=== PATIENT | female | born 1965 | race Caucasian/White ===

== ENCOUNTER 2017-12-05 11:18 | Emergency (ER) | payer OTHER ==
[2017-12-05] MEDS ORDERED: MEPERIDINE HCL 50 MG/ML AMP ONE (12:04)
[2017-12-05] MEDS ORDERED: KETOROLAC 30 MG/ML INJ ONE (12:04)
[2017-12-05] MEDS ORDERED: ONDANSETRON 4 MG (ODT) TAB ONE (12:04)
[2017-12-05 12:32] LABS: Urine Blood TRACE (NEG); Urine Glucose NEGATIVE (NEG); Urine Protein NEGATIVE (NEG); Urine Specific Gravity >1.030 (1.005-1.030)
--- NOTE | 2017-12-05 13:06 | EDPHYS ---
Physician Documentation [facility] Name: Ursula Wu Age: 52 yrs Sex: Female : 1965 Arrival Date: 12/05/2017 Time: 11:21 Bed 7 Private MD: Don Xiong B ED Physician Elian Meek HPI: 12/05 12:04 This 52 yrs old Female presents to ER via Ambulatory with complaints of Back jr8 Pain. 12:04 The patient presents with pain that is acute, and decreased range of motion. The jr8 symptoms are located in the low back. Onset: The symptoms/episode began/occurred acutely, today. The pain radiates. Associated signs and symptoms: The patient has no apparent associated signs or symptoms. The problem was sustained Patient has been having cold symptoms with cough. Stated that she strained her back with cough. Has history of low back pain but much worse today. Denies bowel or bladder dysfunction. Able to ambulate but with pain. 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 - Social history:: Smoking status: Patient/guardian denies using tobacco. ROS: 12:04 Eyes: Negative for injury, pain, redness, and discharge, ENT: Negative for injury, jr8 pain, and discharge, Neck: Negative for injury, pain, and swelling, Cardiovascular: Negative for chest pain, palpitations, and edema, Respiratory: Negative for shortness of breath, cough, wheezing, and pleuritic chest pain, Abdomen/GI: Negative for abdominal pain, nausea, vomiting, diarrhea, and constipation, MS/Extremity: Negative for injury and deformity, Skin: Negative for injury, rash, and discoloration, Neuro: Negative for headache, weakness, numbness, tingling, and seizure. 12:04 Back: Positive for pain at rest, pain with movement, radiated pain, of the low back area. Exam: 12:04 Eyes: Pupils equal round and reactive to light, extra-ocular motions intact. Lids and jr8 lashes normal. Conjunctiva and sclera are non-icteric and not injected. Cornea within normal limits. Periorbital areas with no swelling, redness, or edema. ENT: Nares patent. No nasal discharge, no septal abnormalities noted. Tympanic membranes are normal and external auditory canals are clear. Oropharynx with no redness, swelling, or masses, exudates, or evidence of obstruction, uvula midline. Mucous membranes moist. Neck: Trachea midline, no thyromegaly or masses palpated, and no cervical lymphadenopathy. Supple, full range of motion without nuchal rigidity, or vertebral point tenderness. No Meningismus. Cardiovascular: Regular rate and rhythm with a normal S1 and S2. No gallops, murmurs, or rubs. Normal PMI, no JVD. No pulse deficits. Respiratory: Lungs have equal breath sounds bilaterally, clear to auscultation and percussion. No rales, rhonchi or wheezes noted. No increased work of breathing, no retractions or nasal flaring. Abdomen/GI: Soft, non-tender, with normal bowel sounds. No distension or tympany. No guarding or rebound. No evidence of tenderness throughout. Skin: Warm, dry with normal turgor. Normal color with no rashes, no lesions, and no evidence of cellulitis. MS/ Extremity: Pulses equal, no cyanosis. Neurovascular intact. Full, normal range of motion. Neuro: Awake and alert, GCS 15, oriented to person, place, time, and situation. Cranial nerves II-XII grossly intact. Motor strength 5/5 in all extremities. Sensory grossly intact. Cerebellar exam normal. Normal gait. 12:04 Back: pain, that is moderate, of the low back area, ROM is painful, normal spinal alignment noted, CVA tenderness, is absent, vertebral tenderness, is not appreciated, muscle spasm, is appreciated in the left low back and right low back. Vital Signs: 11:31 BP 146 / 83; Pulse 80; Resp 18; Temp 97.9; Pulse Ox 100% on R/A; Weight 105.23 kg; hb Height 5 ft. 6 in. (167.64 cm); Pain 10/10; 13:12 BP 118 / 66; Pulse 79; Resp 18; Pulse Ox 100% on R/A; hj 11:31 Body Mass Index 37.45 (105.23 kg, 167.64 cm) hb MDM: 11:37 Patient medically screened. jr8 12:48 Data reviewed: vital signs, nurses notes, and as a result, I will discharge patient. jr8 Data interpreted: Pulse oximetry: on room air is 100 %. Interpretation: normal. Counseling: I had a detailed discussion with the patient and/or guardian regarding: the historical points, exam findings, and any diagnostic results supporting the discharge/admit diagnosis, the need for outpatient follow up, a family practitioner, to return to the emergency department if symptoms worsen or persist or if there are any questions or concerns that arise at home. Response to treatment: the patient's symptoms have markedly improved after treatment. 12:48 Differential diagnosis: Pyelonephritis ruptured disc, spinal injury, sprain, jr8 Ureterolithiasis. Counseling: I had a detailed discussion with the patient and/or guardian regarding: the presence of at least one elevated blood pressure reading (>120/80) during this emergency department visit. Special discussion: I have referred the patient to see his PCP for further evaluation of high blood pressure. 12/05 12:05 Order name: Urine Dipstick--Ancillary (enter results); Complete Time: 12:34 eb Administered Medications: 12:02 Drug: TORadol 60 mg Route: IM; Site: left deltoid; la1 13:14 Follow up: Response: No adverse reaction; Pain is decreased hj 12:02 Drug: Demerol 50 mg Route: IM; Site: right deltoid; la1 13:13 Follow up: Response: No adverse reaction; Pain is decreased hj 12:02 Drug: Zofran 8 mg Route: PO; la1 13:13 Follow up: Response: No adverse reaction; Nausea is decreased hj Disposition: 18:57 Co-signature as Attending Physician, Elian Meek MD. Disposition: 12/05/17 13:05 Discharged to Home. Impression: Low back pain, Radiculopathy, lumbar region. - Condition is Stable. - Discharge Instructions: Back Pain, Adult, Musculoskeletal Pain, Back Exercises, [id number], Heat Therapy. - Prescriptions for Ibuprofen 800 mg Oral Tablet - take 1 tablet by ORAL route every 12 hours As needed take with food; 20 tablet. Cyclobenzaprine 10 mg Oral Tablet - take 1 tablet by ORAL route every 8 hours As needed; 30 tablet. Tramadol 50 mg Oral Tablet - take 1 tablet by ORAL route every 8 hours as needed; 20 tablet. - Medication Reconciliation Form, Thank You Letter, Antibiotic Education, Prescription Opioid Use form. - Follow up: Don Xiong MD; When: 2 - 3 days; Reason: Recheck today's complaints, Continuance of care, Re-evaluation by your physician. - Problem is new. - Symptoms have improved. Signatures: Dispatcher [employer] EDMS Carrington Benjamin PA PA jr8 Prieto Peres RN RN la1 Cristian Noe RN RN hj Susan Rao RN RN Elian Meek MD MD
--- NOTE | 2017-12-05 13:06 | ER ---
Nurse's Notes [facility] Name: Ursula Wu Age: 52 yrs Sex: Female : 1965 Arrival Date: 12/05/2017 Time: 11:21 Bed 7 Private MD: Don Xiong B Diagnosis: Low back pain;Radiculopathy, lumbar region Presentation: 12/05 11:28 Presenting complaint: Patient states: Low back pain that radiates to abdomen and right hb foot x 2 days. Transition of care: patient was not received from another setting of care. Onset of symptoms was December 04, 2017. Initial Sepsis Screen: Does the patient meet any 2 criteria? No. Patient's initial sepsis screen is negative. Does the patient have a suspected source of infection? No. Patient's initial sepsis screen is negative. Care prior to arrival: Medication(s) given: Advil 600 mg and prednisone 10 mg at 0930 today. 11:28 Method Of Arrival: Ambulatory hb 11:28 Acuity: GUS 4 hb Triage Assessment: 11:34 General: Appears in no apparent distress. uncomfortable, Behavior is cooperative, hj appropriate for age, crying. Pain: Complains of pain in back. Musculoskeletal: Circulation, motion, and sensation intact. Capillary refill. 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 - Social history:: Smoking status: Patient/guardian denies using tobacco. Screenin:34 Abuse screen: Denies threats or abuse. Denies injuries from another. Nutritional hj screening: No deficits noted. Tuberculosis screening: No symptoms or risk factors identified. Fall Risk None identified. Assessment: 11:38 General: Appears in no apparent distress. uncomfortable, obese, Behavior is calm, hj cooperative, appropriate for age. Pain: Complains of pain in lumbar area Pain radiates to pelvis Pain currently is 7 out of 10 on a pain scale. Quality of pain is described as aching, Pain began 1 day ago. Is continuous, Also complains of tiingling of R foot;. Neuro: Level of Consciousness is awake, alert, obeys commands, Oriented to person, place, time, situation, Appropriate for age. Cardiovascular: Capillary refill < 3 seconds Patient's skin is warm and dry. Respiratory: Airway is patent Respiratory effort is even, unlabored, Respiratory pattern is regular, symmetrical. GI: No signs and/or symptoms were reported involving the gastrointestinal system. : No signs and/or symptoms were reported regarding the genitourinary system. EENT: No signs and/or symptoms were reported regarding the EENT system. Derm: No signs and/or symptoms reported regarding the dermatologic system. Musculoskeletal: Reports pulled muscle 2 years ago, same symptoms today, denies hx of kidney stone;. Vital Signs: 11:31 BP 146 / 83; Pulse 80; Resp 18; Temp 97.9; Pulse Ox 100% on R/A; Weight 105.23 kg; hb Height 5 ft. 6 in. (167.64 cm); Pain 10/10; 13:12 BP 118 / 66; Pulse 79; Resp 18; Pulse Ox 100% on R/A; hj 11:31 Body Mass Index 37.45 (105.23 kg, 167.64 cm) hb ED Course: 11:21 Patient arrived in ED. mr 11:22 Don Xiong MD is Private Physician. mr 11:30 Triage completed. hb 11:31 Arm band placed on right wrist. hb 11:34 Patient has correct armband on for positive identification. Placed in gown. Bed in low hj position. Call light in reach. Side rails up X 1. Adult w/ patient. 11:37 Carrington Benjamin PA is PHCP. jr8 11:37 Elian Meek MD is Attending Physician. jr8 11:37 Cristian Noe, VALORIE is Primary Nurse. hj 13:05 Don Xiong MD is Referral Physician. jr8 13:12 No provider procedures requiring assistance completed. Patient did not have IV access hj during this emergency room visit. Administered Medications: 12:02 Drug: TORadol 60 mg Route: IM; Site: left deltoid; la1 13:14 Follow up: Response: No adverse reaction; Pain is decreased hj 12:02 Drug: Demerol 50 mg Route: IM; Site: right deltoid; la1 13:13 Follow up: Response: No adverse reaction; Pain is decreased hj 12:02 Drug: Zofran 8 mg Route: PO; la1 13:13 Follow up: Response: No adverse reaction; Nausea is decreased Outcome: 13:05 Discharge ordered by MD. deleon 13:12 Discharged to home ambulatory, with family. 13:12 Condition: stable 13:12 Discharge instructions given to patient, family, Instructed on discharge instructions, follow up and referral plans. medication usage, Demonstrated understanding of instructions, follow-up care, medications, Prescriptions given X 3. 13:13 Patient left the ED. Signatures: Aida Lyles mr Carrington Benjamin PA PA jr8 Prieto Peres RN RN laCristian Frias RN RN Susan Rao RN RN
[2017-12-05 13:17] VITALS: O2SAT 100
[2017-12-05 13:18] VITALS: BP 118/66
[2017-12-05 13:24] VITALS: TEMP 97.8
== END 2017-12-05 13:13 | disposition home or self-care (01) ==
LOC: ER 11:18
DX: M54.16 Radiculopathy, lumbar region (principal); K21.9 Gastro-esophageal reflux disease without esophagitis
CPT/HCPCS: 81003; 96372; 99283; J2175

== ENCOUNTER 2018-06-28 19:57 | Emergency (ER) | payer OTHER ==
--- OUTSIDE RECORDS SUMMARY | 2018-06-28 20:00 | XMS REPORT ---
:1965 Author Organization [employer] Care Team Providers Name Role Phone Trevor Campa Provider Role Unavailable Allergies, Adverse Reactions, Alerts Substance Reaction Event Type N.K.D.A. Info Not Available Non Drug Allergy Problems Problem Type Condition Code Onset Dates Condition Status Assessment Pain in joint of left elbow M25.522 Active Assessment Left lateral epicondylitis M77.12 Active Medications Medication Code System Code Instructions Start End Date Status Dosage Date Tums ND 22359943495 500 MG Orally Apr 14, Active 1 tablet Once a day 2017 Advil NDC 52404807200 200 MG Orally Apr 14, Active 1 tablet Three times a day 2017 with food or milk as needed Results No Known Results Summary Purpose [employer] Submission
[2018-06-28] MEDS ORDERED: LORAZEPAM 1 MG TABLET ONE ×2 (21:05→22:18)
[2018-06-28 21:18] LABS: Absolute Lymphocytes (CBC) 2.2 K/uL (0.7-4.9); Absolute Monocytes 0.5 K/uL (0.1-1.3); Absolute Neutrophil 3.5 K/uL (1.8-8.0); Basophils % 0.6 % (0-1.3); Eosinophils % 4.6 % (0-4.4); Hematocrit 44.3 % (36.0-45.0); MCH 28.3 pg (27.0-35.0); MCV 85.9 fL (80-100); MPV 9.1 fL (7.6-11.3); Monocytes % 7.3 % (3.3-12.3); RBC Red Blood Cell Count 5.16 M/uL (3.86-4.86)
[2018-06-28 21:34] LABS: Protime INR 0.94
--- NOTE | 2018-06-28 21:38 | RAD REPORT ---
EXAM DESCRIPTION: CT - Head Brain Wo Cont - 06/28/2018 9:30 pm CLINICAL HISTORY: Alteration of awareness/confusion COMPARISON: December 2016 TECHNIQUE: Computed axial tomography of the head was obtained. IV contrast was not requested. All CT scans are performed using dose optimization technique as appropriate and may include automated exposure control or mA/KV adjustment according to patient size. FINDINGS: An intracranial bleed is not seen . The ventricles are normal in caliber. No extra-axial fluid collection is noted. Fluid within the sinuses/ mastoids is not seen. IMPRESSION: No acute intracranial abnormality is seen. If patient's symptoms persist MRI of the bra in would be recommended.
[2018-06-28 21:39] LABS: ALT/SGPT 27 U/L (12-78); AST/SGOT 19 U/L (15-37); Alkaline Phosphatase 79 U/L (45-117); BUN Blood Urea Nitrogen 25 mg/dL (7-18); Bicarbonate 27 mmol/L (21-32); Bilirubin Direct < 0.1 mg/dL (0-0.2); Bilirubin Total 0.3 mg/dL (0.2-1.0); Glucose Level 104 mg/dL (74-106); Potassium 3.9 mmol/L (3.5-5.1); Protein, Total 7.7 g/dL (6.4-8.2); Sodium Level 142 mmol/L (136-145)
[2018-06-28 21:48] LABS: Barbiturates NEGATIVE (NEGATIVE); Benzodiazepines NEGATIVE (NEGATIVE); Cocaine NEGATIVE (NEGATIVE); METHAMPHETAM NEGATIVE (NEGATIVE); Methadone NEGATIVE (NEGATIVE); Opiates NEGATIVE (NEGATIVE); Phencyclidine NEGATIVE (NEGATIVE); THC Cannibis NEGATIVE (NEGATIVE)
--- NOTE | 2018-06-28 21:48 | EDPHYS ---
Physician Documentation [facility] Name: Ursula Wu Age: 53 yrs Sex: Female : 1965 Arrival Date: 06/28/2018 Time: 19:59 Bed 18 Private MD: Don Xiong B ED Physician Little Ji HPI: 06/28 20:40 This 53 yrs old Female presents to ER via Ambulatory with complaints of ma2 Doesn't Feel Right. 20:40 The patient presents to the emergency department with anxiety. Onset: The ma2 symptoms/episode began/occurred gradually, 1 week(s) ago. Past psychiatric history: Prior diagnosis: anxiety . Associated signs and symptoms: Pertinent positives; anxiety, Pertinent negatives: abdominal pain, delusions, depression, hallucinations, headache, homicidal ideation, nausea, palpitations, shortness of breath, suicide ideation. Severity of symptoms: At their worst the symptoms were moderate in the emergency department the symptoms are unchanged. The patient has experienced a previous episode. 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 - Social history:: Smoking status: Patient/guardian denies using tobacco, Patient/guardian denies using alcohol, street drugs, The patient lives. - Ebola Screening: : No symptoms or risks identified at this time. - Family history:: not pertinent, pertinent for. - Hospitalizations: : No recent hospitalization is reported. ROS: 20:40 Constitutional: Negative for fever, chills, and weight loss. ma2 20:40 ENT: Negative for injury, pain, and discharge, Respiratory: Negative for shortness of breath, cough, wheezing, and pleuritic chest pain. 20:40 Psych: Positive for anxiety, Negative for depression, alcohol dependence, homicidal ideation, suicide gesture. 20:40 All other systems are negative. Exam: 20:40 Constitutional: This is a well developed, well nourished patient who is awake, alert, ma2 and in no acute distress. Head/Face: Normocephalic, atraumatic. Chest/axilla: Normal chest wall appearance and motion. Nontender with no deformity. No lesions are appreciated. Cardiovascular: Regular rate and rhythm with a normal S1 and S2. No gallops, murmurs, or rubs. Normal PMI, no JVD. No pulse deficits. Respiratory: Lungs have equal breath sounds bilaterally, clear to auscultation and percussion. No rales, rhonchi or wheezes noted. No increased work of breathing, no retractions or nasal flaring. Abdomen/GI: Soft, non-tender, with normal bowel sounds. No distension or tympany. No guarding or rebound. No evidence of tenderness throughout. 20:40 Neuro: Awake and alert, GCS 15, oriented to person, place, time, and situation. Cranial nerves II-XII grossly intact. Motor strength 5/5 in all extremities. Sensory grossly intact. Cerebellar exam normal. Normal gait. 20:40 Psych: exam not indicated, Behavior/mood is anxious, Affect is Oriented to person, place, time, Patient has no thoughts/intents to harm self or others. Memory is normal. Delusions/hallucinations are not present. Vital Signs: 20:04 BP 148 / 92; Pulse 72; Resp 18; Temp 97.8; Pulse Ox 99% on R/A; Weight 108.86 kg; ak1 Height 5 ft. 6 in. (167.64 cm); Pain 0/10; 21:30 BP 131 / 51; Pulse 52; Resp 12; Pulse Ox 100% on R/A; lp1 22:15 BP 112 / 60; Pulse 52; Resp 14; Pulse Ox 100% ; Pain 0/10; lp1 20:04 Body Mass Index 38.74 (108.86 kg, 167.64 cm) ak1 MDM: 20:26 Patient medically screened. ma2 20:40 Differential diagnosis: drug withdrawal. acute psychotic break, depression, depression ma2 vs anxiety. Data reviewed: vital signs, nurses notes, EMS record. Counseling: I had a detailed discussion with the patient and/or guardian regarding: the historical points, exam findings, and any diagnostic results supporting the discharge/admit diagnosis, the presence of at least one elevated blood pressure reading (>120/80) during this emergency department visit, lab results, the need for outpatient follow up. Response to treatment: the patient's symptoms have markedly improved after treatment. 06/28 20:40 Order name: Acetaminophen; Complete Time: 21:46 ma2 06/28 20:40 Order name: Basic Metabolic Panel; Complete Time: 21:46 ma2 06/28 20:40 Order name: CBC with Diff; Complete Time: 21:33 ma2 06/28 20:40 Order name: ETOH Level; Complete Time: 21:46 ma2 06/28 20:40 Order name: Hepatic Function; Complete Time: 21:46 ma2 06/28 20:40 Order name: PT-INR; Complete Time: 21:46 ma2 06/28 20:40 Order name: Ptt, Activated; Complete Time: 21:46 ma2 06/28 20:40 Order name: Salicylate [facility] 06/28 20:40 Order name: Urine Drug Screen [facility] 06/28 20:40 Order name: EKG; Complete Time: 20:41 ma2 06/28 21:12 Order name: CT Head Brain wo Cont; Complete Time: 21:46 ma2 06/28 21:35 Order name: Urine Dipstick--Ancillary (enter results) ma5 06/28 20:40 Order name: EKG - Nurse/Tech; Complete Time: 21:57 ma2 06/28 20:40 Order name: IV Saline Lock; Complete Time: 21:57 ma2 06/28 20:40 Order name: Labs collected and sent; Complete Time: 21:57 ma2 06/28 20:40 Order name: Urine Dipstick-Ancillary (obtain specimen); Complete Time: 21:58 ma2 Administered Medications: 21:00 Drug: Ativan 2 mg Route: PO; lp1 21:57 Follow up: Response: Marked relief of symptoms; Anxiety decreased lp1 Disposition: 06/28/18 21:47 Discharged to Home. Impression: Anxiety disorder, unspecified. - Condition is Stable. - Discharge Instructions: Generalized Anxiety Disorder. - Prescriptions for buspirone 5 mg Oral tablet - take 1 tablet by ORAL route 3 times per day; 60 tablet. Ativan 1 mg Oral Tablet - take 1 tablet by ORAL route every 8 hours As needed; 10 tablet. - Medication Reconciliation Form, Thank You Letter, Antibiotic Education, Prescription Opioid Use form. - Follow up: Private Physician; When: Tomorrow; Reason: Continuance of care. Signatures: Dispatcher [employer] Leann Dailey RN RN lp1 Rosario Stark RN RN ak1 Little Ji MD MD ma2 Corrections: (The following items were deleted from the chart) 22:29 21:47 06/28/2018 21:47 Discharged to Home. Impression: Anxiety disorder, unspecified. lp1 Condition is Stable. Discharge Instructions: Generalized Anxiety Disorder. Prescriptions for buspirone 5 mg Oral tablet - take 1 tablet by ORAL route 3 times per day; 60 tablet, Ativan 1 mg Oral Tablet - take 1 tablet by ORAL route every 8 hours As needed; 10 tablet. and Forms are Medication Reconciliation Form, Thank You Letter, Antibiotic Education, Prescription Opioid Use. Follow up: Private Physician; When: Tomorrow; Reason: Continuance of care. ma2
--- NOTE | 2018-06-28 21:48 | ER ---
Nurse's Notes [facility] Name: Ursula Wu Age: 53 yrs Sex: Female : 1965 Arrival Date: 06/28/2018 Time: 19:59 Bed 18 Private MD: Don Xiong B Diagnosis: Anxiety disorder, unspecified Presentation: 06/28 20:08 Presenting complaint: Patient states: started taking antidepressants 2weeks ago for 2 ak1 days and stopped. pt had a fight with her daughter today. pt stated "I feel like I am loosing my mind and I have to much stress". Transition of care: patient was not received from another setting of care. Onset of symptoms was June 28, 2018. Risk Assessment: Do you want to hurt yourself or someone else? Patient reports no desire to harm self or others. Initial Sepsis Screen: Does the patient meet any 2 criteria? No. Patient's initial sepsis screen is negative. Does the patient have a suspected source of infection? No. Patient's initial sepsis screen is negative. Care prior to arrival: None. 20:08 Method Of Arrival: Ambulatory ak1 20:08 Acuity: GUS 2 ak1 Triage Assessment: 20:10 General: Appears in no apparent distress. Behavior is cooperative, anxious. Pain: ak1 Denies pain. EENT: No signs and/or symptoms were reported regarding the EENT system. Neuro: Level of Consciousness is awake, alert, obeys commands, Oriented to person, place, time, Airplane Navigator are equal bilaterally Moves all extremities. Gait is steady, Speech is normal, Facial symmetry appears normal, Pupils are PERRLA. Cardiovascular: No deficits noted. Respiratory: No deficits noted. GI: No signs and/or symptoms were reported involving the gastrointestinal system. : No signs and/or symptoms were reported regarding the genitourinary system. Derm: No signs and/or symptoms reported regarding the dermatologic system. Musculoskeletal: No signs and/or symptoms reported regarding the musculoskeletal system. 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 - Social history:: Smoking status: Patient/guardian denies using tobacco, Patient/guardian denies using alcohol, street drugs, The patient lives. - Ebola Screening: : No symptoms or risks identified at this time. - Family history:: not pertinent, pertinent for. - Hospitalizations: : No recent hospitalization is reported. Screenin:11 Abuse screen: Denies threats or abuse. Denies injuries from another. Abuse screen: ak1 Denies threats or abuse. Nutritional screening: No deficits noted. Tuberculosis screening: No symptoms or risk factors identified. Fall Risk None identified. Assessment: 20:45 General: Appears uncomfortable, well groomed, Behavior is anxious, restless. Pain: lp1 Denies pain. Neuro: Level of Consciousness is awake, alert, obeys commands, Oriented to person, place, time, situation, Appropriate for age States "I keep having moments of piper vu". Airplane Navigator are equal bilaterally Moves all extremities. Full function Gait is steady, Speech is normal, Facial symmetry appears normal, Pupils are PERRLA, Intact. Cardiovascular: Patient's skin is warm and dry. Respiratory: Respiratory effort is even, unlabored. GI: No signs and/or symptoms were reported involving the gastrointestinal system. : No signs and/or symptoms were reported regarding the genitourinary system. EENT: No signs and/or symptoms were reported regarding the EENT system. Derm: Skin is pink, warm \\T\\ dry. Musculoskeletal: Circulation, motion, and sensation intact. 22:04 Reassessment: Patient appears in no apparent distress at this time. Patient and/or lp1 family updated on plan of care and expected duration. Pain level reassessed. Patient is alert, oriented x 3, equal unlabored respirations, skin warm/dry/pink. appears calm at this time Patient states feeling better. Patient states symptoms have improved. 22:25 Reassessment: Patient appears in no apparent distress at this time. Patient is alert, lp1 oriented x 3, equal unlabored respirations, skin warm/dry/pink. family at bedside; Patient states "the racing thoughts have stopped and I'm not having the piper vu anymore" Patient states feeling better. Vital Signs: 20:04 BP 148 / 92; Pulse 72; Resp 18; Temp 97.8; Pulse Ox 99% on R/A; Weight 108.86 kg; ak1 Height 5 ft. 6 in. (167.64 cm); Pain 0/10; 21:30 BP 131 / 51; Pulse 52; Resp 12; Pulse Ox 100% on R/A; lp1 22:15 BP 112 / 60; Pulse 52; Resp 14; Pulse Ox 100% ; Pain 0/10; lp1 20:04 Body Mass Index 38.74 (108.86 kg, 167.64 cm) ak1 ED Course: 19:59 Patient arrived in ED. ds1 19:59 Don Xiong MD is Private Physician. ds1 20:09 Triage completed. ak1 20:10 Arm band placed on Patient placed in an exam room, Patient notified of wait time. ak1 20:11 Patient has correct armband on for positive identification. ak1 20:13 Leann Son, RN is Primary Nurse. lp1 20:25 Little Ji MD is Attending Physician. ma2 21:05 Inserted saline lock: 20 gauge in right antecubital area, using aseptic technique. lp1 Blood collected. 21:30 CT Head Brain wo Cont In Process Unspecified. EDMS 21:30 CT completed. Patient tolerated procedure well. Patient moved to CT via wheelchair. Patient moved back from CT. 22:04 No provider procedures requiring assistance completed. lp1 22:25 IV discontinued, No redness/swelling at site. Pressure dressing applied. lp1 Administered Medications: 21:00 Drug: Ativan 2 mg Route: PO; lp1 21:57 Follow up: Response: Marked relief of symptoms; Anxiety decreased lp1 Outcome: 21:47 Discharge ordered by . ma2 22:28 Discharged to home ambulatory, with family. lp1 22:28 Condition: good 22:28 Discharge instructions given to patient, family, Instructed on discharge instructions, follow up and referral plans. medication usage, Demonstrated understanding of instructions, follow-up care, medications, Prescriptions given X 2. 22:29 Patient left the ED. lp1 Signatures: Dispatcher [employer] EDMS Aiden Jasper GordilloMarilynn angulo ds1 Leann Son RN RN lp1 Rosario Stark RN RN ak1 Little Ji MD MD ma2 Corrections: (The following items were deleted from the chart) 22:28 22:25 Reassessment: Patient appears in no apparent distress at this time. Patient is lp1 alert, oriented x 3, equal unlabored respirations, skin warm/dry/pink. family at bedside Patient states feeling better. lp1
[2018-06-28 22:41] LABS: Urine Blood NEGATIVE (NEG); Urine Glucose NEGATIVE (NEG); Urine Protein NEGATIVE (NEG); Urine Specific Gravity 1.025 (1.005-1.030); Urine pH 5.5 (5.0-7.0)
[2018-06-28 23:41] VITALS: TEMP 97.8
[2018-06-28 23:42] VITALS: O2SAT 100
[2018-06-28 23:43] VITALS: BP 112/60
--- NOTE | 2018-06-29 05:49 | EKG ---
Test Date: 2018-06-28 Test Time: 21:19:19 Special Trackwork Blacksmith: NATASHA MEASUREMENT RESULTS: Intervals: Rate: 60 KS: 160 QRSD: 80 QT: 412 QTc: 412 [place]: P: 45 KS: 160 QRS: 28 T: 22 INTERPRETIVE STATEMENTS: Normal sinus rhythm Normal ECG Compared to ECG 05/22/2013 08:51:03 Sinus bradycardia no longer present Electronically Signed On 06-29-18 05:48:55 VENDING MACHINE COIN COLLECTOR by Russell Verdugo
== END 2018-06-28 22:29 | disposition home or self-care (01) ==
LOC: ER 19:57
DX: F41.9 Anxiety disorder, unspecified (principal); K21.9 Gastro-esophageal reflux disease without esophagitis; Z88.6 Allergy status to analgesic agent
CPT/HCPCS: 36415; 70450; 80048; 80076; 80307; 80320; 80329; 81003; 85025; 85610; 85730; 93005; 99284

== ENCOUNTER 2018-07-11 11:31 | Observation (INO) | payer OTHER ==
--- OUTSIDE RECORDS SUMMARY | 2018-07-11 11:33 | XMS REPORT ---
[...] End Date Status Dosage Date Tums ND [id number] 500 MG Orally Apr 14, Active 1 tablet Once a day 2017 Advil NDC [id number] 200 MG Orally Apr 14, Active 1 tablet Three times a day 2017 with food or milk as needed Results No Known Results Summary Purpose eClinicalWorks Submission
--- NOTE | 2018-07-11 12:48 | RAD REPORT ---
EXAM DESCRIPTION: RAD - Chest Single View - 07/11/2018 12:41 pm CLINICAL HISTORY: CHEST PAIN Chest pain. COMPARISON: CHEST SINGLE VIEW dated 05/22/2013; CHEST SINGLE VIEW dated 02/23/2012 FINDINGS: Portable technique limits examination quality. The lungs are grossly clear. The heart is normal in size. No displaced fractures. IMPRESSION: No acute intrathoracic process suspected.
[2018-07-11 13:02] LABS: Absolute Lymphocytes (CBC) 2.2 K/uL (0.7-4.9); Absolute Monocytes 0.4 K/uL (0.1-1.3); Absolute Neutrophil 3.7 K/uL (1.8-8.0); Basophils % 1.4 % (0-1.3); Lymphocytes % 33.1 % (15.3-44.8); MCH 28.3 pg (27.0-35.0); MCV 84.5 fL (80-100); MPV 9.2 fL (7.6-11.3); Monocytes % 6.2 % (3.3-12.3); RBC Red Blood Cell Count 5.21 M/uL (3.86-4.86)
[2018-07-11] MEDS ORDERED: ASPIRIN 81 MG CHEWABLE TABLET ONE (13:02)
[2018-07-11] MEDS ORDERED: NITROGLYCERIN 0.4 MG/TAB SL ONE (13:03)
[2018-07-11 13:19] LABS: ALT/SGPT 24 U/L (12-78); AST/SGOT 13 U/L (15-37); Alkaline Phosphatase 70 U/L (45-117); BUN Blood Urea Nitrogen 16 mg/dL (7-18); Bicarbonate 29 mmol/L (21-32); Bilirubin Direct 0.1 mg/dL (0-0.2); Bilirubin Total 0.7 mg/dL (0.2-1.0); Glucose Level 92 mg/dL (74-106); Magnesium 2.1 mg/dL (1.8-2.4); NT PRO-BNP 57 pg/mL (<125); Potassium 3.6 mmol/L (3.5-5.1); Protein, Total 7.7 g/dL (6.4-8.2); Sodium Level 141 mmol/L (136-145); Troponin (Emerg Dept Use Only) < 0.02 ng/mL (0.0-0.045)
--- NOTE | 2018-07-11 13:30 | ER ---
Nurse's Notes [facility] Name: Ursula Wu Age: 53 yrs Sex: Female : 1965 Arrival Date: 07/11/2018 Time: 11:38 Bed 13 Private MD: Don Xiong B Diagnosis: Chest pain, unspecified Presentation: 07/11 11:44 Presenting complaint: Patient states: continuous CP chest pain that began this morning. 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 Transition of care: patient was not received from another setting of care. Onset of symptoms was July 11, 2018. Risk Assessment: Do you want to hurt yourself or someone else? Patient reports no desire to harm self or others. Initial Sepsis Screen: Does the patient meet any 2 criteria? No. Patient's initial sepsis screen is negative. Does the patient have a suspected source of infection? No. Patient's initial sepsis screen is negative. Care prior to arrival: None. 11:44 Method Of Arrival: Ambulatory 11:44 Acuity: GUS 3 ss TECHNOLOGY APPLICATIONS CONSULTANT: 13:03 LMP N/A - Irregular menses bp Historical: - Allergies: 11:45 Pain Medication Makes very sick N/V; ss - PMHx: 11:45 GERD; ss - PSHx: 11:45 Partial Hysterectomy; ss - Immunization history:: Adult Immunizations up to date. - Social history:: Smoking status: Patient/guardian denies using tobacco. - Ebola Screening: : Patient denies exposure to infectious person Patient denies travel to an Ebola-affected area in the 21 days before illness onset. Screenin:48 Abuse screen: Denies threats or abuse. Denies injuries from another. Nutritional bp screening: No deficits noted. Tuberculosis screening: No symptoms or risk factors identified. Fall Risk None identified. Assessment: 12:00 General: Appears in no apparent distress. comfortable, Behavior is cooperative, bp appropriate for age, anxious. Pain: Complains of pain in chest Pain does not radiate. Pain began. Neuro: Level of Consciousness is awake, alert, obeys commands. Cardiovascular: Rhythm is sinus bradycardia. Respiratory: Airway is patent Respiratory effort is even, unlabored, Respiratory pattern is regular, symmetrical. GI: No signs and/or symptoms were reported involving the gastrointestinal system. : No signs and/or symptoms were reported regarding the genitourinary system. EENT: No signs and/or symptoms were reported regarding the EENT system. Derm: No signs and/or symptoms reported regarding the dermatologic system. Musculoskeletal: Circulation, motion, and sensation intact. Range of motion: intact in all extremities. 13:00 Reassessment: ALL CURRENT ORDERS COMPLETED, RESULTS PENDING. bp 14:28 Reassessment: ALL CURRENT ORDERS COMPLETED, ADMIT IN PROCESS. bp 16:12 Reassessment: ADMIT COMPLETE. NO ACUTE S/S AT THIS TIME. bp Vital Signs: 11:40 BP 163 / 99; Pulse 56; Resp 16; Temp 98.1(TE); Pulse Ox 98% on R/A; Pain 5/10; ss 12:30 BP 157 / 69; Pulse 52; Resp 16; Pulse Ox 100% ; bp 14:29 BP 126 / 71; Pulse 66; Resp 14; Pulse Ox 99% ; bp 16:12 BP 131 / 63; Pulse 62; Resp 14; Pulse Ox 97% ; bp ED Course: 11:38 Patient arrived in ED. mr 11:38 Don Xiong MD is Private Physician. mr 11:40 Arm band placed on right wrist. ss 11:45 Triage completed. ss 11:54 Carrington Benjamin PA is PHCP. jr8 11:54 Carlito Stuart MD is Attending Physician. jr8 12:26 Kendall Zaman, VALORIE is Primary Nurse. bp 12:40 X-ray completed. Portable x-ray completed in exam room. Patient tolerated procedure jb2 well. 12:42 XRAY Chest (1 view) In Process Unspecified. EDMS 12:48 Patient has correct armband on for positive identification. Bed in low position. Call bp light in reach. Side rails up X2. Adult w/ patient. Pulse ox on. NIBP on. 12:48 Inserted saline lock: 20 gauge in right antecubital area, using aseptic technique. bp Blood collected. 12:49 Patient maintains SpO2 saturation greater than 95% on room air. bp 13:29 Luiza Brown MD is Hospitalizing Provider. jr8 16:11 No provider procedures requiring assistance completed. Patient admitted, IV remains in bp place. Administered Medications: 12:37 Drug: Aspirin Chewable Tablet 324 mg Route: PO; bp 17:12 Follow up: Response: No adverse reaction bp 12:37 Drug: Nitroglycerin 0.4 mg Route: Sublingual; bp 17:12 Follow up: Response: No adverse reaction bp Outcome: 13:30 Decision to Hospitalize by Provider. pancho 16:10 Condition: stable bp 16:10 Instructed on the need for admit. 16:10 Admitted to Med/surg accompanied by tech, via stretcher, room 414, Report called to bp BYRON EUGENE 17:40 Patient left the ED. bp Signatures: Dispatcher [employer] Miley Fenton Emma, Ted schaeffer2 Annel Nance, RN RN ss Carrington Benjamin PA PA jr8 Kendall Zaman, RN RN bp
--- NOTE | 2018-07-11 13:30 | EDPHYS ---
Physician Documentation [facility] Name: Ursula Wu Age: 53 yrs Sex: Female : 1965 Arrival Date: 07/11/2018 Time: 11:38 Bed 13 Private MD: Don Xiong B ED Physician Carlito Stuart HPI: 07/11 12:43 This 53 yrs old Female presents to ER via Ambulatory with complaints of Chest jr8 Pain. 12:43 The patient or guardian reports chest pain that is located primarily in the substernal jr8 area. Onset: acutely, today. The pain radiates to the left shoulder. Associated signs and symptoms: The patient has no apparent associated signs or symptoms. The chest pain is described as a pressure. Duration: The patient or guardian reports a single episode, that is still ongoing. Modifying factors: The symptoms are alleviated by nothing. the symptoms are aggravated by nothing. Severity of pain: At its worst the pain was moderate in the emergency department the pain is unchanged. The patient has not experienced similar symptoms in the past. The patient has not recently seen a physician. 12:43 Stated that she thought it was indigestion at first so took Tums which usually resolves jr8 it almost immediately. Stated that when she tried that today, it did not work. SEWER: 13:03 LMP N/A - Irregular menses bp Historical: - Allergies: 11:45 Pain Medication Makes very sick N/V; ss - PMHx: 11:45 GERD; ss - PSHx: 11:45 Partial Hysterectomy; ss - Immunization history:: Adult Immunizations up to date. - Social history:: Smoking status: Patient/guardian denies using tobacco. - Ebola Screening: : Patient denies exposure to infectious person Patient denies travel to an Ebola-affected area in the 21 days before illness onset. ROS: 12:43 Eyes: Negative for injury, pain, redness, and discharge, ENT: Negative for injury, jr8 pain, and discharge, Neck: Negative for injury, pain, and swelling, Respiratory: Negative for shortness of breath, cough, wheezing, and pleuritic chest pain, Abdomen/GI: Negative for abdominal pain, nausea, vomiting, diarrhea, and constipation, Back: Negative for injury and pain, MS/Extremity: Negative for injury and deformity, Skin: Negative for injury, rash, and discoloration, Neuro: Negative for headache, weakness, numbness, tingling, and seizure. 12:43 Cardiovascular: Positive for chest pain, Negative for edema, orthopnea, palpitations, paroxysmal nocturnal dyspnea. Exam: 12:43 Eyes: Pupils equal round and reactive to light, extra-ocular motions intact. Lids and jr8 lashes normal. Conjunctiva and sclera are non-icteric and not injected. Cornea within normal limits. Periorbital areas with no swelling, redness, or edema. ENT: Nares patent. No nasal discharge, no septal abnormalities noted. Tympanic membranes are normal and external auditory canals are clear. Oropharynx with no redness, swelling, or masses, exudates, or evidence of obstruction, uvula midline. Mucous membranes moist. Neck: Trachea midline, no thyromegaly or masses palpated, and no cervical lymphadenopathy. Supple, full range of motion without nuchal rigidity, or vertebral point tenderness. No Meningismus. Chest/axilla: Normal chest wall appearance and motion. Nontender with no deformity. No lesions are appreciated. Cardiovascular: Regular rate and rhythm with a normal S1 and S2. No gallops, murmurs, or rubs. Normal PMI, no JVD. No pulse deficits. Respiratory: Lungs have equal breath sounds bilaterally, clear to auscultation and percussion. No rales, rhonchi or wheezes noted. No increased work of breathing, no retractions or nasal flaring. Abdomen/GI: Soft, non-tender, with normal bowel sounds. No distension or tympany. No guarding or rebound. No evidence of tenderness throughout. Back: No spinal tenderness. No costovertebral tenderness. Full range of motion. Skin: Warm, dry with normal turgor. Normal color with no rashes, no lesions, and no evidence of cellulitis. MS/ Extremity: Pulses equal, no cyanosis. Neurovascular intact. Full, normal range of motion. Neuro: Awake and alert, GCS 15, oriented to person, place, time, and situation. Cranial nerves II-XII grossly intact. Motor strength 5/5 in all extremities. Sensory grossly intact. Cerebellar exam normal. Normal gait. Vital Signs: 11:40 BP 163 / 99; Pulse 56; Resp 16; Temp 98.1(TE); Pulse Ox 98% on R/A; Pain 5/10; ss 12:30 BP 157 / 69; Pulse 52; Resp 16; Pulse Ox 100% ; bp 14:29 BP 126 / 71; Pulse 66; Resp 14; Pulse Ox 99% ; bp 16:12 BP 131 / 63; Pulse 62; Resp 14; Pulse Ox 97% ; bp MDM: 12:05 Patient medically screened. jr8 12:43 HEART Score: History: Moderately Suspicious (1), ECG: Non specific repolarization jr8 disturbance / LBTB / PM (1), Age: > 45 and < 65 years (1), Risk Factors: 1 or 2 risk factors (1), [Hypertension] [+ Family HX] Troponin: < or = 1 x Normal Limit (0). The patient was given aspirin in the Emergency Department. Data reviewed: vital signs, nurses notes, lab test result(s), EKG, radiologic studies, plain films. Data interpreted: Pulse oximetry: on room air is 98 %. Interpretation: normal. Counseling: I had a detailed discussion with the patient and/or guardian regarding: the historical points, exam findings, and any diagnostic results supporting the discharge/admit diagnosis, lab results, radiology results, the need for further work-up and treatment in the hospital. 13:29 Physician consultation: Luiza Brown MD was called at 13:29, was contacted at 13:29, jr8 regarding admission, to the telemetry unit. consult, patient's condition, and will see patient in ED. 07/11 12:05 Order name: Basic Metabolic Panel; Complete Time: 13:24 [facility] 07/11 12:05 Order name: CBC with Diff; Complete Time: 13:13 [facility] 07/11 12:05 Order name: LFT's; Complete Time: 13:24 [facility] 07/11 12:05 Order name: Magnesium; Complete Time: 13:24 [facility] 07/11 12:05 Order name: NT PRO-BNP; Complete Time: 13:24 [facility] 07/11 12:05 Order name: PT-INR; Complete Time: 13:07 [facility] 07/11 11:46 Order name: EKG; Complete Time: 11:47 07/11 11:46 Order name: EKG - Nurse/Tech; Complete Time: 12:50 07/11 12:05 Order name: Troponin (emerg Dept Use Only); Complete Time: 13:24 [facility] 07/11 12:05 Order name: XRAY Chest (1 view); Complete Time: 12:55 8 07/11 12:05 Order name: Cardiac monitoring; Complete Time: 12:47 jr8 07/11 12:05 Order name: IV Saline Lock; Complete Time: 12:47 8 07/11 12:05 Order name: Labs collected and sent; Complete Time: 12:47 8 07/11 12:05 Order name: O2 Per Protocol; Complete Time: 12:47 8 07/11 12:05 Order name: O2 Sat Monitoring; Complete Time: 12:47 8 Administered Medications: 12:37 Drug: Aspirin Chewable Tablet 324 mg Route: PO; bp 17:12 Follow up: Response: No adverse reaction bp 12:37 Drug: Nitroglycerin 0.4 mg Route: Sublingual; bp 17:12 Follow up: Response: No adverse reaction bp Disposition: 18:04 Co-signature as Attending Physician, Luiza Brown MD I agree with the assessment and sawyer plan of care. Disposition: 07/11/18 13:30 Hospitalization ordered by Luiza Brown for Observation. Preliminary diagnosis is Chest pain, unspecified. - Bed requested for Telemetry/MedSurg (observation). - Status is Observation. bp - Condition is Stable. - Problem is new. - Symptoms have improved. UTI on Admission? No Signatures: Dispatcher [employer] EDMS Carlito Stuart MD MD cha Smirch, Shelby, RN RN ss Carrington Benjamin PA PA jr8 Isabela Torre, RN RN Kendall Mondragon RN RN bp Corrections: (The following items were deleted from the chart) 15:19 13:30 Hospitalization Ordered by Luiza Brown MD for Observation. Preliminary diagnosis df is Chest pain, unspecified. Bed requested for Telemetry/MedSurg (observation). Status is Observation. Condition is Stable. Problem is new. Symptoms have improved. UTI on Admission? No. jr8 17:40 15:19 07/11/2018 13:30 Hospitalization Ordered by Luiza Brown MD for Observation. bp Preliminary diagnosis is Chest pain, unspecified. Bed requested for Telemetry/MedSurg (observation). Status is Observation. Condition is Stable. Problem is new. Symptoms have improved. UTI on Admission? No. df
--- NOTE | 2018-07-11 15:11 | EKG ---
Test Date: 2018-07-11 Test Time: 12:02:36 Household Coordinator: E[place]ICO MEASUREMENT RESULTS: Intervals: Rate: 49 NM: 158 QRSD: 80 QT: 428 QTc: 386 [place]: P: 21 NM: 158 QRS: -8 T: -1 INTERPRETIVE STATEMENTS: Marked sinus bradycardia Minimal voltage criteria for LVH, may be normal variant Abnormal ECG Compared to ECG 06/28/2018 21:19:19 Left ventricular hypertrophy now present Sinus rhythm no longer present Electronically Signed On 07-11-18 15:10:54 TRAY SETTER by Russell Verdugo
[2018-07-11] MEDS ORDERED: ACETAMINOPHEN 500 MG TAB PO PRN (18:03)
[2018-07-11] MEDS ORDERED: NITROGLYCERIN 0.4 MG/TAB SL PRN (18:23)
[2018-07-11] MEDS ORDERED: ATORVASTATIN 40 MG TAB PO SCH (21:00)
[2018-07-11] MEDS: ENOXAPARIN 40 MG/0.4 ML SQ SCH ×2 (21:00→21:03)
[2018-07-11] MEDS ORDERED: FAMOTIDINE 20 MG TAB PO SCH (21:00)
[2018-07-11] MEDS ORDERED: clonazePAM 0.5 MG TAB PO PRN (21:01)
[2018-07-11 21:38] VITALS: O2SAT 99
[2018-07-12 00:35] VITALS: BMI 36.6
[2018-07-12 05:04] LABS: Absolute Lymphocytes (CBC) 3.2 K/uL (0.7-4.9); Absolute Monocytes 0.5 K/uL (0.1-1.3); Absolute Neutrophil 2.9 K/uL (1.8-8.0); Basophils % 0.7 % (0-1.3); Eosinophils % 5.1 % (0-4.4); Hematocrit 40.9 % (36.0-45.0); Lymphocytes % 45.8 % (15.3-44.8); MCH 28.6 pg (27.0-35.0); MCV 84.6 fL (80-100); MPV 9.2 fL (7.6-11.3); Monocytes % 7.7 % (3.3-12.3); RBC Red Blood Cell Count 4.84 M/uL (3.86-4.86)
[2018-07-12 05:19] LABS: Potassium 4.2 mmol/L (3.5-5.1)
[2018-07-12] MEDS ORDERED: INFLUENZA VACCINE (for 3y+) 0.5 ML DOSE IMVAC ONE (08:00)
[2018-07-12] MEDS ORDERED: LISINOPRIL 10 MG TAB PO SCH (09:00)
[2018-07-12] MEDS: ENOXAPARIN 40 MG/0.4 ML SQ SCH (09:00)
[2018-07-12] MEDS ORDERED: REGADENOSON 0.4 MG/5 ML SYR IV ONE (09:00)
[2018-07-12] MEDS ORDERED: ASPIRIN EC 81 MG TAB PO SCH (09:00)
--- NOTE | 2018-07-12 11:08 | P.HP ---
Certification for Inpatient Patient admitted to: Observation With expected LOS: <2 Midnights Patient will require the following post-hospital care: None Practitioner: I am a practitioner with admitting privileges, knowledge of patient current condition, hospital course, and medical plan of care. Services: Services provided to patient in accordance with Admission requirements found in Title 42 Section 412.3 of the Code of Federal Regulations Patient History Date of Service: 07/11/18 Reason for admission: CP r/o ACS History of Present Illness: Patient is a 53yo who was admitted to the hospital with chest discomfort. Patient has been having some issues with anxiety for the last few weeks. She was actually in the hospital the day before Thanksgiving with an out of body feeling. She was told she had some anxiety issues so she was discharged on anxiolytics. The patient continued to have symptoms. It got worse today so she came into the hospital. She has a lot of stress. She has a lot of her family members and they depend on her quite a bit so even after leaving work she feels very stressed. She was admitted to the hospital to be ruled out for acute coronary syndrome. Allergies Pain Medication Makes very sick N Allergy (Uncoded 07/11/18 21:05) Unknown Home Medications: Famotidine [Pepcid] 20 mg PO BEDTIME 07/11/18 Tizanidine [Zanaflex*] 2 mg PO BEDTIME PRN 07/11/18 clonazePAM [Klonopin*] 0.25 mg PO BEDTIME PRN 07/11/18 - Past Medical/Surgical History Has patient received pneumonia vaccine in the past: No Diabetic: No -: Hiatal Hernia -: Diverticulosis -: Chronic Back pain -: Arthritis -: Partial Hysterectomy -: Tonsillectomy - Family History Mother Medical History: Heart disease, Other (see notes) Notes: NC Father Medical History: Heart disease, Cancer, Other (see notes) Notes: Lung Cancer - Social History Smoking Status: Never smoker Alcohol use: No CD- Drugs: No Caffeine use: Yes Place of Residence: Home Review of Systems 10-point ROS is otherwise unremarkable Physical Examination - Vital Signs Temperature: 97.7 F Blood Pressure: 123/58 Pulse: 51 Respirations: 18 Pulse Ox (%): 97 - Physical Exam General: Alert, In no apparent distress, Oriented x3 HEENT: Atraumatic, PERRLA, Mucous membr. moist/pink, EOMI, Sclerae nonicteric Neck: Supple, 2+ carotid pulse no bruit, No LAD, Without JVD or thyroid abnormality Respiratory: Clear to auscultation bilaterally, Normal air movement Cardiovascular: Regular rate/rhythm, Normal S1 S2, No murmurs Gastrointestinal: Normal bowel sounds, Soft and benign, Non-distended, No tenderness, No rebound, No guarding Musculoskeletal: No clubbing, No swelling, No tenderness Integumentary: No rashes Neurological: Normal gait, Normal speech, Normal strength at 5/5 x4 extr, Normal tone, Sensation intact, Cranial nerves 3-12 intact, Normal affect Lymphatics: No axilla or inguinal lymphadenopathy - Studies Laboratory Data (last 24 hrs) 07/11/18 12:45: PT 11.8, INR 1.00 07/11/18 12:45: WBC 6.7, Hgb 14.8, Hct 44.0, Plt Count 281 D 07/11/18 12:45: Sodium 141, Potassium 3.6, BUN 16, Creatinine 0.90, Glucose 92, Magnesium 2.1, Total Bilirubin 0.7, AST 13 L, ALT 24, Alkaline Phosphatase 70 Assessment & Plan - Problems (Diagnosis) (1) Chest pain, rule out acute myocardial infarction Current Visit: Yes Status: Acute (2) Anxiety Current Visit: Yes Status: Acute (3) Stress disorder, acute Current Visit: Yes Status: Acute - Plan 1. Serial troponins and EKG 2. Cardiology consultation 3. Echocardiogram and inpatient stress test 4. Anti-platelet therapy, anti coagulation, beta-arminda, statin, and O2 as needed 5. IV morphine for pain 6. Nitro p.r.n. 7. Anxiolytics Discharge Plan: Home Plan to discharge in: 24 Hours - Advance Directives Does patient have a Living Will: No Does patient have a Durable POA for Healthcare: No - Code Status/Comfort Care Code Status Assessed: Yes Code Status: Full Code Critical Care: No Time Spent Managing PTS Care (In Minutes): 50
--- NOTE | 2018-07-12 12:15 | ECHO ---
HEIGHT: 5 ft 7 in WEIGHT: 234 lb 0 oz DATE OF STUDY: 07/12/[address]: 2-DIMENSIONAL: YES M.MODE: YES DOPPLER: YES COLOR FLOW: YES TDS: NO PORTABLE: NO DEFINITY: NO BUBBLE STUDY: NO DIAGNOSIS: CHEST PAIN CARDIAC HISTORY: CATHERIZATION: NO SURGERY: NO PROSTHETIC VALVE: NO PACEMAKER: NO MEASUREMENTS (cm) DIASTOLIC (NORMALS) SYSTOLIC (NORMALS) IVSd 0.9 (0.6-1.2) LA Diam 4.0 (1.9-4.0) LVEF 67% LVIDd 4.2 (3.5-5.7) LVIDs 2.6 (2.0-3.5) %FS 37% LVPWd 1.1 (0.6-1.2) Ao Diam 3.0 (2.0-3.7) 2 DIMENSIONAL ASSESSMENT: RIGHT ATRIUM: NORMAL LEFT ATRIUM: NORMAL RIGHT VENTRICLE: NORMAL LEFT VENTRICLE: NORMAL TRICUSPID VALVE: NORMAL MITRAL VALVE: NORMAL PULMONIC VALVE: NORMAL AORTIC VALVE: NORMAL PERICARDIAL EFFUSION: NONE AORTIC ROOT: NORMAL LEFT VENTRICULAR WALL MOTION: NORMAL DOPPLER/COLOR FLOW: MILD TRICUSPID REGURGITATION. COMMENTS: MILD TRICUSPID REGURGITATION. NORMAL RIGHT VENTRICULAR SYSTOLIC PRESSURE. NORMAL LEFT VENTRICULAR SIZE AND FUNCTION. NO WALL MOTION ABNORMALITY. NO EFFUSION. TECHNOLOGIST: PAULO PACHECO
--- NOTE | 2018-07-12 12:17 | TREADPHA ---
DX: CHEST PAIN Date of Study: 07/12/18 Ht: 5 7 Wt: 234 lb 0 oz Consulting Physician: DIANA MEDICATIONS: TYLENOL, ASPIRIN, LIPITOR, KLONOPIN, LOVENOX, LISINOPRIL HISTORY: 53 YEAR OLD WOMAN WITH HISTORY OF CHEST PAIN PHYSICIAL EXAMINATION: RESTING B.P.: 125/65 RESTING H.R.: 50 RESTING EKG: NORMAL SINUS RHYTHM, NORMAL ST. PROTOCOL: LEXISCAN EXERCISE TIME: 3:30 B.P. AT PEAK STRESS: 144/68 IMPRESSION: LEXISCAN STRESS TEST PERFORMED. CARDIOLITE INJECTED PER PROTOCOL. NO CHEST PAIN, SUPRA VENTRICULAR TACHYCARDIA, VENTRICULAR TACHYCARDIA NOTED. SEE NUCLEAR MEDICINE REPORT.
--- NOTE | 2018-07-12 12:17 | RAD REPORT ---
EXAM DESCRIPTION: NM - Rest Stress Cardiac Imaging - 07/12/2018 12:05 pm CLINICAL HISTORY: Chest pain. COMPARISON: None. TECHNIQUE: The patient was administered approximately 10mCi of Tc 99m Sestamibi prior to resting SPE CT imaging of the heart. The patient was then administered approximately 30 mCi of Tc 99m Sestamibi f ollowing exercise or pharmacologic stress. Multiplanar SPECT images were reviewed. FINDINGS: There is uniformity of radiotracer uptake involving the entire left ventricular myocardium on rest and stress views sequences. The left ventricular ejection fraction equals 76% IMPRESSION: Negative for a myocardial perfusion defect
[2018-07-12 12:39] VITALS: BP 149/74; TEMP 98.6
--- NOTE | 2018-07-12 13:22 | CON ---
Date of Consultation: 07/12/2018 Reason For Consultation: Chest pain and hypertension. History Of Present Illness: Ms. Wu is a 53-year-old white woman, who has no significant past ca rdiac history. She has a history of gastroesophageal reflux disease. She has been under significant amount of stress. Approximately 2 to 3 weeks ago, had a head CT because of episodes of confusion wh ich was negative. She came in yesterday with blood pressure 170/106, constant chest pain over the le ft lateral chest wall that feels like tightness and has been going on for hours. Her EKG showed LVH with sinus bradycardia. Troponin, CPKs, and MBs were negative. She denied palpitation or syncope. Denied fever, cough, or chills. Denied any nausea, vomiting, diaphoresis, PND, orthopnea, or pedal e suzie. Allergies: SHE IS ALLERGIC TO PAIN MEDICATION. Review of Systems: Negative. Social History: Negative for tobacco. Family History: Negative for heart disease. Medications: At home are none. Physical Examination: Vital Signs: Ms. Wu's vital signs were stable. General: She was in no acute distress. Afebrile. Moderately obese. HEENT: Negative. Neck: Supple, with no bruit. Chest: Clear to auscultation and percussion. Cardiac: Revealed a regular rhythm and rate. No murmurs, gallops, or rubs. Abdomen: Benign. Extremities: Revealed no clubbing, cyanosis, or edema. Diagnostic Data: Stated earlier. Impression And Plan: 1.Chest pain, atypical, most likely secondary to hypertension and stress. 2.Gastroesophageal reflux. 3.Abnormal EKG. I think, Ms. Wu needs to be on antihypertensive medication, preferably beta blockers or calcium blockers such as amlodipine. She may benefit from some hydrochlorothiazide as well. She is to watch her salt intake, watch her weight, exercise. I agree with the echocardiogram and stress test that a re ordered for today. We will see what these show prior to her going home. KIRTI/ISAAC Voice ID: [id number] Report ID: [id number]
== END 2018-07-12 17:59 | disposition home or self-care (01) ==
LOC: ER 11:31 → 4TH 13:30
PROVIDERS: ADMIT Family Medicine; ATTEND Hospitalist
DX: R07.9 Chest pain, unspecified (principal); F41.9 Anxiety disorder, unspecified; F43.0 Acute stress reaction; K21.9 Gastro-esophageal reflux disease without esophagitis; R94.31 Abnormal electrocardiogram [ECG] [EKG]
CPT/HCPCS: 36415; 71045; 78452; 80048; 80061; 80076; 83735; 83880; 84484; 85025; 85610; 93005; 93017; 93306; 94760; 99285; A9500; G0378; J1650; J2785

== ENCOUNTER 2020-06-16 15:19 | Emergency (ER) | payer BC, OTHER ==
--- OUTSIDE RECORDS SUMMARY | 2020-06-16 15:23 | XMS REPORT | Summary of Care ---
:1965 Author Organization [facility] Address [address] [place] [address] Care Team Providers Name Role Phone Don Xiong Primary Care Provider Reason for Visit Reason Comments Sore Throat Headache Diarrhea LAB Encounter Details Date Type Department Care Team Description 04/23/2020 Laboratory Only [facility] Reyna Jara, INSIGHTS ANALYST [address] [facility] [address] [place] [address] Suspected Covid-19 Medicine - [place] [facility], Adc Fam Pob I Virus Infection [address] [facility] [address] [facility] [address] [place] [address] Allergies Not on Filedocumented as of this encounter (statuses as of 04/23/2020) Medications Not on filedocumented as of this encounter (statuses as of 04/23/2020) Active Problems Not on filedocumented as of this encounter (statuses as of 04/23/2020) Social History Tobacco Use Types Packs/Day Years Used Date Never Assessed Sex Assigned at Date Recorded Not on file COVID-19 Exposure Response Date Recorded In the last month, have you been in contact with No / Unsure 04/23/2020 6:08 PM CDT someone who was confirmed or suspected to have Coronavirus / COVID-19? documented as of this encounter Last Filed Vital Signs Not on filedocumented in this encounter Nursing Notes Donna Schrader MA - 04/23/2020 6:00 PM CDTLindmichele Wu is a 55 year old female here for COVID Screening with a Nasopharyngeal Swab All droplet and contact precautions taken with appropriate PPE worn while interacting with patient. ? Goggles ? N95 Mask ? Gloves ? Gown RR 18 Pulse Ox 97% Patient educated on plan of care for visit, swabbing technique, risks and benefits of test and length of time to receive results. Verbal consent obtained to perform test. CDC Fact Sheet for Patients nCoV Diagnostic Panel dated 10/22/2019 and Factsheet What to Do if Sick with COVID 19 10/02/19 provided. Patient swabbed per appropriate nasopharyngeal technique, and patient tolerated well. Patient was discharged from the testing clinic in stable condition. Donna Schrader MA 04/23/2020 6:09 PM Bilate nares swabbed during COVID19 nasopharyngeal swab. documented in this encounter Plan of Treatment Name Type Priority Associated Diagnoses Order S chedule COVID-19 (PCR MOLECULAR LAB Routine Suspected Covid-1 9 Virus Expected: 04/23/2020, TESTING) Infection Expires: 2020 Health Maintenance Due Date Last Done Comments HEPATITIS C (HCV) SCREEN 1965 Depression Screening 1976 DTaP,Tdap,and Td Vaccines (1 - 01/22/1983 Tdap) PAP SMEAR 01/22/1985 Breast Cancer Screening (MAMMOGRAM) 2004 COLON CANCER SCREENING ANNUAL 01/22/2014 FIT/FOBT COLON CANCER SCREENING FIT DNA 01/22/2014 EVERY 3 YEARS COLON CANCER SCREENING 01/22/2014 SIGMOIDOSCOPY EVERY 5 YEARS COLONOSCOPY 01/22/2014 Colorectal Cancer Screening 01/22/2014 Zoster Recombinant Vaccine 01/22/2014 (SHINGRIX) (1 of 2) INFLUENZA VACCINE (#1) 2020 PNEUMOCOCCAL 0-64 YEARS COMBINED Aged Out No longer eligible based on SERIES patient's age to complete this topic documented as of this encounter Results Not on filedocumented in this encounter Visit Diagnoses Diagnosis Suspected Covid-19 Virus Infection - Sofie caitlyn documented in this encounter Additional Health Concerns Infection Onset Date Last Indicated Resolved Time COVID-19 Rule Out 04/23/2020 04/23/2020 documented as of this encounter Insurance Payer Benefit Plan / Subscriber ID Effective Dates Phone Addre ss Type Group BCBS OF [employer] [id number] 2020-Presen [phone] [facility] t [id number] [place] [address] AETNA AETNA CHOICE POS [id number] 2018-Jorge POS II t documented as of this encounter
--- OUTSIDE RECORDS SUMMARY | 2020-06-16 15:23 | XMS REPORT | Summary of Care ---
:1965 Author Organization [facility] Address [address] [place] [address] Care Team Providers Name Role Phone Don Xiong Primary Care Provider Reason for Visit Reason Comments Sore Throat Headache Diarrhea LAB Encounter Details Date Type Department Care Team Description 04/23/2020 Laboratory Only [facility] Reyna Jara, DELICATESSEN CLERK [address] [facility] [address] [place] [address] Suspected Covid-19 Medicine - [place] [facility], Adc Fam Pob I Virus Infection [address] [facility] ([address] x) [place] [address] Allergies Not on Filedocumented as [...] ss Type Group BCBS OF [employer] [id number] 2020-Presen [phone] [facility] t 7 [id number] [place] [address] AETNA AETNA CHOICE POS [id number] 2018-Jorge POS II t documented as of this encounter
--- OUTSIDE RECORDS SUMMARY | 2020-06-16 15:23 | XMS REPORT | Summary of Care ---
:1965 Author Organization [facility] - Health Address [address] [place] [address] Care Team Providers Name Role Phone Don Xiong Primary Care Provider Encounter Details Date Type Department Care Team Description 04/23/2020 Letter (Out) [facility] [employer] Message s Doctor Unassigned, No [address] [facility] [place] [address] [address] [facility] [phone] [place] [address] Allergies Not on Filedocumented as of this encounter (statuses as of 04/23/2020) Medications Not on filedocumented as of this encounter (statuses as of 04/23/2020) Active Problems Not on filedocumented as of this encounter (statuses as of 04/23/2020) Social History Tobacco Use Types Packs/Day Years Used Date Never Assessed Sex Assigned at Date Recorded Not on file documented as of this encounter Last Filed Vital Signs Not on filedocumented in this encounter Plan of Treatment Date Type Specialty Care Team Description 04/23/2020 Laboratory Only [facility] Reyna Doran, FN P [address] [facility] [address] [place] [address] [phone] Lab, Adc Fam Pob I Health Maintenance Due Date Last Done Comments [...] Results Not on filedocumented in this encounter Insurance Payer Benefit Plan / Subscriber ID Effective Dates Phone Addre ss Type Group BCBS OF BL[employer] [id number] 2020-Presen [phone] [facility] [id number] [place] [address] AETNA AETNA CHOICE POS [id number] 2018-Presen POS II t documented as of this encounter
--- OUTSIDE RECORDS SUMMARY | 2020-06-16 15:23 | XMS REPORT | Continuity of Care Document ---
:1965 Author Organization [facility] t Address [address] [place] [address] Care Team Providers Name Role Phone Lab, Andrzej August I Attending Clinician Unavailable Problems Condition Condition Condition Status Onset Resolution Last Treating Co mments Source Name Details Category Date Date Treatment Clinician Date Pain in Pain in Diagnosis [facility] Left Left Diagnosis Active [facility] lateral lateral [facility] - epicondyli epicondyli Me moria tis tis l [facility] Allergies, Adverse Reactions, Alerts This patient has no known allergies or adverse reactions. Medications Ordered Filled Start Stop Current Ordering Indication Dosage Frequency Signature Comments Components Source Medication Medication Date Date Medication? Clinician (SIG) Name Name Minerva Palma Yes Trevor [address] [facility] 04[facility]14 [place] [facility] - 00:00: [facility] 00 l [facility] ent Clinics Advil Advil Yes Trevor 1 tablet [facility] [place] with food [facility] - 00:00: or milk as Memoria 00 needed [facility] ent Clinics Procedures This patient has no known procedures. Encounters Start End Encounter Admission Attending Care Care Encounter Source Date/Time Date/Time Type Type Clinicians Facility Department ID 2020-04-23 2020-04-23 Laboratory Lab, [facility] [id number] 17:59:08 18:19:08 Only Fam Pob I Health [id number] [place] [id number] Rita [phone] nal [address] 2018-04-14 2018-04-14 Outpatient [facility] [id number] [facility] [address] 15:30:00 15:30:00 t [facility] - [facility] Joint [facility] Results This patient has no known results.
--- NOTE | 2020-06-16 17:30 | ER ---
Nurse's Notes [facility] Name: Ursula Wu Age: 55 yrs Sex: Female : 1965 Arrival Date: 06/16/2020 Time: 15:22 Bed Waiting Private MD: Diagnosis: Presentation: 06/16 15:36 Chief complaint: Dizziness and nausea upon waking today. Last known normal at 11 pm. hb Coronavirus screen: At this time, the client does not indicate any symptoms associated with coronavirus-19. Ebola Screen: No symptoms or risks identified at this time. Initial Sepsis Screen: Does the patient meet any 2 criteria? No. Patient's initial sepsis screen is negative. Does the patient have a suspected source of infection? No. Patient's initial sepsis screen is negative. Risk Assessment: Do you want to hurt yourself or someone else? Patient reports no desire to harm self or others. Onset of symptoms was June 16, 2020. 15:36 Method Of Arrival: Ambulatory hb 15:36 Acuity: GUS 3 hb Historical: - Allergies: 15:38 Pain Medication Makes very sick N/V; hb - PMHx: 15:38 GERD; hb - PSHx: 15:38 Partial Hysterectomy; hb - Immunization history:: Adult Immunizations up to date. - Social history:: Smoking status: Patient denies any tobacco usage or history of. Vital Signs: 15:36 BP 178 / 88; Pulse 74; Resp 16; Temp 97.8; Pulse Ox 98% on R/A; Pain 0/10; hb ED Course: 15:22 Patient arrived in ED. ds1 15:38 Triage completed. hb 15:38 Arm band placed on. hb 17:03 Patient's name was called from ER lobby. No response. hb Administered Medications: No medications were administered Outcome: 17:30 Patient left the ED. hb Signatures: Marilynn Gordillo ds1 Susan Rao, RN RN hb
[2020-06-16 18:07] VITALS: BP 178/88; TEMP 97.8; O2SAT 98
== END 2020-06-16 17:30 | disposition left against medical advice (07) ==
LOC: ER 15:19
DX: Z53.21 Procedure and treatment not carried out due to patient leaving prior to being seen by health care provider (principal)
CPT/HCPCS: 99281

== ENCOUNTER 2021-12-04 20:38 | Observation (INO) | payer BC, OTHER ==
--- OUTSIDE RECORDS SUMMARY | 2021-12-04 20:42 | XMS REPORT | Continuity of Care Document ---
:1965 Author Organization [facility] t Address [address] [place] [address] Care Team Providers Name Role Phone Charles ReinosoCharanjit Wojciech Primary Care Physician DR MISSAEL CASTRO Attending Clinician Unavailable Doctor Unassigned, Name Attending Clinician Unavailable Radha EUGENE, T Attending Clinician Unavailable Singer MACK Attending Clinician Attending Clinician Unavailable Vaccine, Db Cbc Fam Attending Clinician Unavailable Blayne GARCIA Attending Clinician BLAYNE Attending Clinician Unavailable August GARCIA Attending Clinician Sylvia MILL PLATFORM SUPERVISOR Attending Clinician SYLVIA Attending Clinician Unavailable Ebrahim MILL PLATFORM SUPERVISOR Attending Clinician Provider, Urgent Care Attending Clinician Unavailable EBRAHIM Attending Clinician Unavailable Lab, Fam Pob I Attending Clinician Unavailable Leonel MILL PLATFORM SUPERVISOR Attending Clinician LEONEL Attending Clinician Unavailable DR MISSAEL CASTRO Admitting Clinician Unavailable Payers Payer Name Policy Type Policy Number Effective Date Expiration Date Dayan mesa 0107 [id number] 1959 00:00:00 Problems Condition Condition Condition Status Onset Resolution Last Treating Co mments Source Name Details Category Date Date Treatment Clinician Date No known No known Disease Unive rs active active ity of problems problems [facility] Allergies, Adverse Reactions, Alerts Allergy Allergy Status Severity Reaction(s) Onset Inactive Treating Comm ents Source Name Type Date Date Clinician NO KNOWN Drug Active Univers ALLERGIE Class ity of S [facility] Social History Social Habit Start Date Stop Date Quantity Comments Source Exposure to Not sure [facility] SARS-CoV-2 (event) Medica l Branch Tobacco use and 2020-06-16 2020-06-16 Never used [facility] exposure 00:00:00 00:00:00 [facility] Sex Ass[birth year] At [birth year] [facility] 00:00:00 00:00:00 Medical Branch Smoking Status Start Date Stop Date Source Unknown if ever smoked [facility] Never smoker [facility] Medications Ordered Filled Start Stop Current Ordering Indication Dosage Frequency Signature Comments Components Source Medication Medication Date Date Medication? Clinician (SIG) Name Name ondansetron 2020-08 No 4mg 4 mg, Univ ers (ZOFRAN-ODT 2-27 12-27 Oral, ity of ) 18:30: 17:30 ONCE, 1 [place] disintegrat 00 :00 dose, On Medi frederick ing tablet Mon Branch 4 mg 08/04/21 at 1230, Routine benzonatate 2020-08 Yes [id number] 100mg Take 1 Univers 100 mg 2-27 capsule by ity of capsule 00:00: mouth 3 [place] 00 (three) Medical times Branch daily as needed for Cough. metoclopram 2020-08 Yes [id number] 10mg Take 1 U nivers pipo HCl 10 2-27 tablet by ity of mg tablet 00:00: mouth [place] 00 every 6 Medical (six) Branch hours. chlorphenir 2020-08 Yes [id number] 4mg Take 1 U nivers amine 4 mg 2-27 tablet by ity of tablet 00:00: mouth [place] 00 every 6 Medical (six) Branch hours as needed for Allergies or Runny nose. calcium/mag 2020-08 Yes [id number] 1{each} Take 1 Univers nesium/zinc 2-27 Each by ity o f (CALCIUM-MA 00:00: mouth [place] GNESUIUM-ZI 00 daily. Medica l NC) Branch 333-133-5 mg Tab benzonatate 2020-08 Yes [id number] 100mg Take 1 Univers 100 mg 2-27 capsule by ity of capsule 00:00: mouth 3 [place] 00 (three) Medical times Branch daily as needed for Cough. metoclopram 2020-08 Yes [id number] 10mg Take 1 U nivers pipo HCl 10 2-27 tablet by ity of mg tablet 00:00: mouth [place] 00 every 6 Medical (six) Branch hours. chlorphenir 2020-08 Yes [id number] 4mg Take 1 U nivers amine 4 mg 2-27 tablet by ity of tablet 00:00: mouth [place] 00 every 6 Medical (six) Branch hours as needed for Allergies or Runny nose. calcium/mag 2020-08 Yes [id number] 1{each} Take 1 Univers nesium/zinc 2-27 Each by ity o f (CALCIUM-MA 00:00: mouth [place] GNESUIUM-ZI 00 daily. Medica l NC) Branch 333-133-5 mg Tab benzonatate 2020-08 Yes [id number] 100mg Take 1 Univers 100 mg 2-27 capsule by ity of capsule 00:00: mouth 3 [place] 00 (three) Medical times Branch daily as needed for Cough. metoclopram 2020-08 Yes [id number] 10mg Take 1 U nivers pipo HCl 10 2-27 tablet by ity of mg tablet 00:00: mouth [place] 00 every 6 Medical (six) Branch hours. chlorphenir 2020-08 Yes [id number] 4mg Take 1 U nivers amine 4 mg 2-27 tablet by ity of tablet 00:00: mouth [place] 00 every 6 Medical (six) Branch hours as needed for Allergies or Runny nose. calcium/mag 2020-08 Yes [id number] 1{each} Take 1 Univers nesium/zinc 2-27 Each by ity o f (CALCIUM-MA 00:00: mouth [place] GNESUIUM-ZI 00 daily. Medica l NC) Branch 333-133-5 mg Tab vitamin 2020-08- No [id number] 1{tbl} Take 1 Un amaris D3-folic 2-27 - tablet by ity o f acid 125 00:00: 05:59 mouth [place] mcg (5,000 00 :00 daily for Medi frederick unit)-1 mg 30 days. Branc h Tab vitamin 2020-08- No [id number] 1{tbl} Take 1 Un amaris D3-folic 2-27 - tablet by ity o f acid 125 00:00: 05:59 mouth [place] mcg (5,000 00 :00 daily for Medi frederick unit)-1 mg 30 days. Branc h Tab proMETHazin Yes [id number] 12.5mg Take 1 Univers e 12.5 mg 9-06 tablet by ity o f tablet 00:00: mouth [place] 00 every 4 Medical (four) Branch hours as needed for Nausea and Vomiting (N/V). proMETHazin Yes [id number] 12.5mg Take 1 Univers e 12.5 mg 9-06 tablet by ity o f tablet 00:00: mouth [place] 00 every 4 Medical (four) Branch hours as needed for Nausea and Vomiting (N/V). proMETHazin Yes [id number] 12.5mg Take 1 Univers e 12.5 mg 9-06 tablet by ity o f tablet 00:00: mouth [place] 00 every 4 Medical (four) Branch hours as needed for Nausea and Vomiting (N/V). proMETHazin Yes [id number] 12.5mg Take 1 Univers e 12.5 mg 9-06 tablet by ity o f tablet 00:00: mouth [place] 00 every 4 Medical (four) Branch hours as needed for Nausea and Vomiting (N/V). proMETHazin Yes [id number] 12.5mg Take 1 Univers e 12.5 mg 9-06 tablet by ity o f tablet 00:00: mouth [place] 00 every 4 Medical (four) Branch hours as needed for Nausea and Vomiting (N/V). proMETHazin Yes [id number] 12.5mg Take 1 Univers e 12.5 mg 9-06 tablet by ity o f tablet 00:00: mouth [place] 00 every 4 Medical (four) Branch hours as needed for Nausea and Vomiting (N/V). proMETHazin 2020-0 Yes [id number] 12.5mg Take 1 Univers e 12.5 mg 9-06 tablet by ity o f tablet 00:00: mouth [place] 00 every 4 Medical (four) Branch hours as needed for Nausea and Vomiting (N/V). proMETHazin 0 Yes [id number] 12.5mg Take 1 Univers e 12.5 mg 9-06 tablet by ity o f tablet 00:00: mouth [place] 00 every 4 Medical (four) Branch hours as needed for Nausea and Vomiting (N/V). meclizine 2019-08- No [id number] 25mg Take 1 Univers 25 mg 08-16 tablet by ity of tablet 00:00: 05:59 mouth 3 [place] 00 :00 (three) Medical times Branch daily as needed for Dizziness for up to 7 days. meclizine 2019-08- No [id number] 25mg Take 1 Univers 25 mg 08-16 tablet by ity of tablet 00:00: 05:59 mouth 3 [place] 00 :00 (three) Medical times Branch daily as needed for Dizziness for up to 7 days. ondansetron 2019-08- No [id number] 4mg Take 1 Univers 4 mg tablet 08-16 tablet by it y of 00:00: 05:59 mouth [place] 00 :00 every 8 Medical (eight) Branch hours as needed for Nausea and Vomiting (N/V) for up to 3 days. ondansetron 2019-08- No [id number] 4mg Take 1 Univers 4 mg tablet 08-16 tablet by it y of 00:00: 05:59 mouth [place] 00 :00 every 8 Medical (eight) Branch hours as needed for Nausea and Vomiting (N/V) for up to 3 days. Tums Tums 2017-0 Yes Trevor [address] [facility] [place] [facility] Advil Advil 2017-0 Yes [facility] [place] with food [facility] or milk as [facility] 00 needed l [facility]pat[facility] ent Clinics No known No Univers medications [facility] No known No Univers medications [facility] Immunizations Ordered Filled Immunization Date Status Comments [facility] Immunization Name Name SARS-COV-2 COVID-19 2021-07-30 Completed Unive rsity of MODERNA BOOSTER 00:00:00 [facility] [place] ica VACCINE Branch SARS-COV-2 COVID-19 2021-07-30 Completed Unive rsity of MODERNA BOOSTER 00:00:00 [facility] [place] [facility] VACCINE Branch SARS-COV-2 COVID-19 2021-07-30 Completed Unive rsity of MODERNA BOOSTER 00:00:00 [facility] [place] [facility] VACCINE Branch SARS-COV-2 COVID-19 2021-07-30 Completed Unive rsity of MODERNA BOOSTER 00:00:00 [place] Med ical VACCINE Branch SARS-COV-2 COVID-19 2021-07-30 Completed Unive rsity of MODERNA BOOSTER 00:00:00 [facility] [place] ical VACCINE Branch Vital Signs Vital Name Observation Time Observation Value Comments Source Systolic blood 2021-08-04 16:55:00 164 mm[Hg] Univer sity of pressure [place] [facility] Diastolic blood 2021-08-04 16:55:00 86 mm[Hg] Unive rsity of pressure [place] [facility] Heart rate 2021-08-04 16:55:00 61 /min Universi ty of [place] [facility] Body temperature 2021-08-04 16:55:00 36.78 Lidia Univ ersity of [place] [facility] Respiratory rate 2021-08-04 16:55:00 20 /min Univ ersity of [place] [facility] Body weight 2021-08-04 16:55:00 108.863 kg Universi ty of [place] [facility] BMI 2021-08-04 16:55:00 38.74 kg/m2 Universi ty of [place] [facility] Oxygen saturation in 2021-08-04 16:55:00 99 /min University of Arterial blood by [place] [email or web address] frederick Pulse oximetry Branch Systolic blood 2021-04-14 21:09:00 130 mm[Hg] Univer sity of pressure [place] [facility] Diastolic blood 2021-04-14 21:09:00 83 mm[Hg] Unive rsity of pressure [place] [facility] Heart rate 2021-04-14 21:09:00 60 /min Universi ty of [place] [facility] Body temperature 2021-04-14 21:09:00 36.89 Lidia Univ ersity of [place] [facility] Respiratory rate 2021-04-14 21:09:00 18 /min Univ ersity of [place] [facility] Body weight 2021-04-14 21:09:00 106.142 kg Universi ty of [place] [facility] BMI 2021-04-14 21:09:00 37.77 kg/m2 Universi ty of [place] [facility] Oxygen saturation in 2021-04-14 21:09:00 96 /min University of Arterial blood by [employer] frederick Pulse oximetry Branch Systolic blood 2020-06-16 22:37:00 110 mm[Hg] Univer sity of pressure [place] [facility] Diastolic blood 2020-06-16 22:37:00 74 mm[Hg] Unive rsity of pressure [facility] Heart rate 2020-06-16 22:37:00 54 /min [facility] Body temperature 2020-06-16 22:37:00 36.72 Lidia [facility] Respiratory rate 2020-06-16 22:37:00 18 /min [facility] Body height 2020-06-16 22:37:00 167.6 cm [facility] Body weight 2020-06-16 22:37:00 97.07 kg [facility] BMI 2020-06-16 22:37:00 34.54 kg/m2 [facility] Oxygen saturation in 2020-06-16 22:37:00 98 /min [facility] Ar[facility]ial blood by [facility] Pulse oximetry Branch Procedures Procedure Date / Time Performed Performing Clinician [facility] REFERRAL- 2021-09-15 06:01:00 Doctor Unassigned, No [facility] REQUEST/RESPONSE Name Medical [place] RAPID INFLUENZA A/B 2021-08-04 17:31:00 Yelitza Cortez [facility] CONSENT/REFUSAL FOR 2021-08-04 16:48:41 Doctor Unassigned, No [facility] [place] DIAGNOSIS AND Name Medical Branch TREATMENT SARS-COV-2 COVID-19 2021-07-30 15:19:30 Doctor Unassigned, No [facility] [place] VACCINE Name Medical Branch BOOSTER,0.25ML,IM (MODERNA) [facility] PATIENT FINANCIAL 2021-04-14 21:03:08 Doctor Unassigned, No [facility] POLICY Name Medical Branch NOTICE OF PRIVACY 2021-04-14 21:02:54 Doctor Unassigned, No [facility] PRACTICES Name Medical Branch CONSENT/REFUSAL FOR 2021-04-14 21:02:42 Doctor Unassigned, No [facility] [place] DIAGNOSIS AND Name Medical Branch TREATMENT ASSIGNMENT OF BENEFITS 2021-04-14 21:02:27 Doctor Unassigned, No [facility] Medical Branch Encounters Start End Encounter Admission Attending Care Care Encounter Source Date/Time Date/Time Type Type Clinicians Facility Department ID 2022-01-14 Inpatient Veronica CASTRO Veronica TRAVISASC [id number] [facility] 09:00:00 TIMOTHY-BRITTANIE [facility] 2021-11-05 [facility] [id number] [facility] 2021-09-25 [facility] [id number] [facility] 08[facility]30[facility] 2021-09-11 [facility] [id number] [facility] [facility]20[facility] 2021-11-24 2021-11-24 amb[facility] [id number] [facility] 2021-09-25 2021-09-25 [facility] [id number] [facility] 2021-09-15 2021-09-15 Orders Doctor ELVIS 1.2.840.114 [id number] Univers 00:00:00 00:00:00 Only Unassigned, CEDRIC [id number] ity of [place] [facility] [id number] Serafin as [phone] [facility] 009 Branch 2021-08-05 2021-08-05 Letter ELVIS Garcia 1.2.840.114 [id number] Univers 00:00:00 00:00:00 (Out) Sailaja STEELE [id number] it y of [facility] [id number] Serafin as [phone] [facility] 019 Branch 2021-08-04 2021-08-[address] [facility] [id number] Univers 10:57:00 12:52:00 Yelitza CAST [id number] i ty of [place] 4.2.7.2.686 [facility] [phone] [facility] 084 Branch 2021-08-04 2021-08-04 Emergency X SINGER [facility] ERT [id number] Univers 10:57:00 12:52:00 YELITZA monten[place] of [facility] 2021-08-04 2021-08-04 Orders Doctor LEAL [id number] [id number] Univers 00:00:00 00:00:00 Only Unassigned, CEDRIC [id number] ity of [place] [facility] [id number] Serafin as [phone] [facility] 009 [place] 2021-07-30 2021-07-30 Imm/Inj Vaccine, Ang Db Cbc Fam [facility] 1. 2.840.114 [id number] Univers 09:00:00 09:10:00 Visit Blayne [facility] [id number] ity of [place] [id number] Serafin as AKIRA?BLEA [phone] [address] MEDICAL OFFICE BUILDING 2021-07-30 2021-07-30 Outpatient R [facility] [id number] Univers 09:00:00 09:00:00 [id number] ity [facility] 2021-07-30 2021-07-30 [facility] [id number] Univers 09:00:00 09:00:[address] [facility] 2021-07-29 2021-07-29 Outpatient R [facility] [id number] Univers 15:00:00 15:00:00 [id number] ity [facility] 2021-07-29 2021-07-29 [facility] [id number] Univers 15:00:00 15:00:[address] [facility] 2021-04-15 2021-04-15 Letter ELVIS Garcia 1.2.840.114 [id number] Univers 00:00:00 00:00:00 (Out) Sailaja STEELE [id number] it y of HOSPITAL [id number] Serafin as [phone] [facility] 019 [place] 2021-04-14 2021-04-14 Urgent Nicole Koch [facility] 1.2.840.114 [id number] Univers 16:03:42 16:18:42 [facility] [id number] ity of [place] [id number] Serafin as Akira?Blea [phone] Wy kinsey adhikari [address] [place] [facility] Building 2021-04-14 2021-04-14 Outpatient [facility] [id number] Univers 16:00:00 16:00:00 [id number] ity of [facility] 2021-04-14 2021-04-14 Outpatient R SYLVIA, [facility] [id number] Univers 16:00:00 16:00:00 EVE colmenaresy o f [facility] 2021-04-14 2021-04-14 Orders Doctor ELVIS 1.2.840.114 [id number] Univers 00:00:00 00:00:00 Only Unassigned, CEDRIC [id number] ity of [place] [facility] [id number] Serafin as [phone] [address] 2020-06-17 2020-06-17 [facility] 1.2.840.114 [id number] Univers 00:00:00 00:00:00 [facility] [id number] it y of [place] [id number] Serafin as Professio [phone] Wy dical nal [address] [place] Office [address] One 2020-06-16 2020-06-16 Urgent Provider, [facility] Ur[facility] 1.2.840.114 [id number] Univers 16:22:20 16:42:20 Care Ebriflynn, [facility] 350.1.13.10 ity of [place] [id number] Serafin as Professio [phone] Wy dical nal [address] [place] Office Building One 2020-06-16 2020-06-16 Outpatient R [facility] [id number] Univers 16:20:00 16:20:00 ity [facility] 2020-06-16 2020-06-16 Outpatient R ELVIRA [facility] [id number] Univers 16:20:00 16:20:00 CLAIRE [facility] 2020-04-23 2020-04-23 Laboratory Lab, [facility] 1.2.840.114 [id number] 17:59:08 18:19:08 Only Fam Pob I Health 350.1.13.10 [place] 4.2.7.2.686 Professio [phone] [place] [address] Office Building One 2020-04-23 2020-04-23 Laboratory Lab, Adc Fam Pob I [facility] 1.2. 840.114 [id number] Univers 17:59:08 18:19:08 Only Reyna Doran [facility] [id number] ity of [place] [id number] Serafin as Professio [phone] Wy dical [address] Office Building One 2020-04-23 2020-04-23 Outpatient R LEONEL [facility] [id number] Univers 18:00:00 18:00:00 REYNA ity [facility] 2020-04-23 2020-04-23 Letter Doctor ELVIS 1.2.840.114 [id number] Univers 00:00:00 00:00:00 (Out) Unassigned, ARCHER [id number] ity of [place] [facility] [id number] Serafin as [phone] [address] 2018-04-14 2018-04-14 [facility] [id number] 15:30:00 15:30:00 [facility] ent Clinics Results This patient has no known results.
[2021-12-04] MEDS ORDERED: FENTANYL CITR 100 MCG/2 ML ONE ×2 (21:40→22:59)
--- NOTE | 2021-12-04 23:33 | EDPHYS ---
Physician Documentation [facility] Name: Ursula Wu Age: 56 yrs Sex: Female : 1965 Arrival Date: 12/04/2021 Time: 20:47 Bed 20 Private MD: ED Physician Jt Morton HPI: 12/04 22:27 This 56 yrs old Female presents to ER via EMS with complaints of knee pain. jr8 22:27 Onset: The symptoms/episode began/occurred acutely, today. Modifying factors: The jr8 symptoms are alleviated by hydromorphone the symptoms are aggravated by movement. Associated signs and symptoms: The patient has no apparent associated signs or symptoms. Severity of symptoms: At their worst the symptoms were moderate, in the emergency department the symptoms are unchanged. The patient has not experienced similar symptoms in the past. The patient has been recently seen by a physician:. Patient stated that she had a arthroscopic knee procedure completed to the left knee. Stated that she was in a large amount of pain post procedurally. Stated that she was given hydromorphone and Toradol at the facility and then was sent home on p.o. hydromorphone and 800 mg ibuprofen. Stated that she is only had mild relief since then and now is having a large amount of pain that is uncontrolled at this time. EMS brought patient in and was given fentanyl prior to arrival with only minimal relief. Denies injuring her knee was procedure today.. Historical: - Allergies: 21:59 Pain Medication Makes very sick N/V; ke1 - PMHx: 21:59 GERD; ke1 - Immunization history:: Client reports receiving the 2nd dose of the Covid vaccine. - Social history:: Smoking status: Patient denies any tobacco usage or history of. ROS: 22:27 Eyes: Negative for injury, pain, redness, and discharge, ENT: Negative for injury, jr8 pain, and discharge, Neck: Negative for injury, pain, and swelling, Cardiovascular: Negative for chest pain, palpitations, and edema, Respiratory: Negative for shortness of breath, cough, wheezing, and pleuritic chest pain, Abdomen/GI: Negative for abdominal pain, nausea, vomiting, diarrhea, and constipation, Back: Negative for injury and pain, Skin: Negative for injury, rash, and discoloration, Neuro: Negative for headache, weakness, numbness, tingling, and seizure. 22:27 MS/extremity: Positive for decreased range of motion, pain, swelling, tenderness, of the left leg. Exam: 22:27 Cardiovascular: Regular rate and rhythm with a normal S1 and S2. No gallops, murmurs, jr8 or rubs. Normal PMI, no JVD. No pulse deficits. Respiratory: Lungs have equal breath sounds bilaterally, clear to auscultation and percussion. No rales, rhonchi or wheezes noted. No increased work of breathing, no retractions or nasal flaring. Skin: Warm, dry with normal turgor. Normal color with no rashes, no lesions, and no evidence of cellulitis. Neuro: Awake and alert, GCS 15, oriented to person, place, time, and situation. Cranial nerves II-XII grossly intact. Motor strength 5/5 in all extremities. Sensory grossly intact. 22:27 Constitutional: The patient appears alert, awake, in obvious pain. 22:27 Musculoskeletal/extremity: Extremities: grossly normal except: noted in the left leg: Patient has left knee wrap in place. No large amount of swelling or erythremia noted around the region. Moderate tenderness to palpation to the anterior knee. Normal sensation present with 2+ dorsal valgus pulses. Patients other extremities unremarkable, Circulation is intact in all extremities. Sensation intact. Vital Signs: 20:48 Weight 105.23 kg; Height 5 ft. 7 in. (170.18 cm); Pain 10/10; ke1 20:48 BP 127 / 58; Pulse 59; Resp 18; Temp 97.8(O); Pulse Ox 97% ; ke1 22:13 BP 123 / 56; Pulse 68; Resp 18; Pulse Ox 95% on R/A; ke1 23:30 BP 101 / 50; Pulse 64; Resp 18; Pulse Ox 100% on R/A; vc1 12/05 00:44 BP 110 / 53; Pulse 57; Resp 16; Pulse Ox 96% on R/A; vc1 00:46 Pain 4/10; vc1 12/04 20:48 Body Mass Index 36.34 (105.23 kg, 170.18 cm) ke1 MDM: 12/04 20:50 Patient medically screened. jr8 22:27 Data reviewed: vital signs, nurses notes, and as a result, I will discharge patient. jr8 Data interpreted: Pulse oximetry: on room air is 95 %. Interpretation: normal. Counseling: I had a detailed discussion with the patient and/or guardian regarding: the historical points, exam findings, and any diagnostic results supporting the discharge/admit diagnosis, the need for outpatient follow up, a orthopedic surgeon, to return to the emergency department if symptoms worsen or persist or if there are any questions or concerns that arise at home. 23:29 ED course: Although patient is doing better she is still a good amount of pain. I spoke jr8 with Dr. Ramirez who did the procedure today and agrees that patient should be admitted overnight for observation. Patient will be admitted to the hospitalist and Dr. Ramirez will see patient first thing in the morning.. 12/04 23:26 Order name: CBC with Diff; Complete Time: 05:37 8 12/04 23:26 Order name: Basic Metabolic Panel; Complete Time: 05:37 8 12/04 23:25 Order name: US Extremity Venous Unilateral Ltd [facility] 12/04 23:47 Order name: SARS-COV-2 RT PCR (Document "Date of Onset" if Symptomatic) [facility] Administered Medications: 21:44 Drug: fentaNYL (PF) 100 mcg Route: IVP; Site: left forearm; ke1 22:02 Follow up: Response: Marked relief of symptoms ke1 23:01 Drug: fentaNYL (PF) 75 mcg Route: IVP; Site: left forearm; vc1 Disposition: 12/05 19:18 Co-signature as Attending Physician, Jt Morton MD. mh7 Disposition Summary: 12/04/21 23:32 Hospitalization Ordered Hospitalization Status: Observation jr8 Provider: Kleber Person Condition: Stable jr8 Problem: new jr8 Symptoms: have improved jr8 Bed/Room Type: Standard [facility] Location: [facility] ER HOLD(12/04/21 23:42) cg Room Assignment: ERHOLD-(12/04/21 23:42) cg Diagnosis - Pain in left knee jr8 - Other acute postprocedural pain jr8 Forms: - Medication Reconciliation Form jr8 - SBAR form jr8 Signatures: Dispatcher [employer] EDMS Carrington Benjamin PA PA jr8 Prieto Peres, FOREST RANGER TECHNICIAN-C FOREST RANGER TECHNICIAN-[facility] Katherine Santacruz, VALORIE RN cg Jt Morton MD MD mh7 Marcia Leslie RN RN vc1 Ramos Denise RN RN ke1 Corrections: (The following items were deleted from the chart) 12/04 23:30 22:52 ED course: Patient overall feeling much better. Patient has p.o. Dilaudid and jr8 ibuprofen at home which she continue to take as needed for pain. Counseled patient on the safety and responsibility with the medication that she was given as the p.o. Dilaudid can be very dangerous and addictive. If the pain continues to intensify or persist that she needs to follow-up with her orthopedic before the weekend.. jr8 23:42 23:32 Telemetry/MedSurg (observation) jr8 cg 23:42 23:32 jr8
--- NOTE | 2021-12-04 23:33 | ER ---
Nurse's Notes [facility] Name: Ursula Wu Age: 56 yrs Sex: Female : 1965 Arrival Date: 12/04/2021 Time: 20:47 Bed 20 Private MD: Diagnosis: Pain in left knee;Other acute postprocedural pain Presentation: 12/04 20:48 Chief complaint: Patient states: Pain L leg post orthoscope this morning. Pain since ke1 then \\T\\ 1030 despite self medication at home with hydromorphone and dilaudid. Current pain 10/10 received fentanyl 50 mcg with EMS + zofran 4mg on the way to hospital but patient still in pain. Coronavirus screen: Vaccine status: Patient reports receiving the 2nd dose of the covid vaccine. Ebola Screen: No symptoms or risks identified at this time. Initial Sepsis Screen: Does the patient meet any 2 criteria? No. Patient's initial sepsis screen is negative. Does the patient have a suspected source of infection? No. Patient's initial sepsis screen is negative. Risk Assessment: Do you want to hurt yourself or someone else? Patient reports no desire to harm self or others. Onset of symptoms was December 04, 2021. 20:48 Method Of Arrival: EMS: [facility] ke1 20:48 Acuity: GUS 3 ke1 Triage Assessment: 20:48 General: Appears uncomfortable, Behavior is appropriate for age. Pain: Complains of ke1 pain in left leg. Historical: - Allergies: 21:59 Pain Medication Makes very sick N/V; ke1 - PMHx: 21:59 GERD; ke1 - Immunization history:: Client reports receiving the 2nd dose of the Covid vaccine. - Social history:: Smoking status: Patient denies any tobacco usage or history of. Screenin:00 Abuse screen: Denies threats or abuse. Nutritional screening: No deficits noted. ke1 Tuberculosis screening: No symptoms or risk factors identified. Fall Risk None identified. Assessment: 20:48 Pain: Complains of pain in left leg Pain does not radiate. Pain currently is 10 out of ke1 10 on a pain scale. at worst was 10 out of 10 on a pain scale. level that patient reports is acceptable is 4 out of 10 on a pain scale. Quality of pain is described as aching. 22:00 General: Appears in no apparent distress. comfortable, Behavior is calm, cooperative, vc1 appropriate for age. Pain: Complains of pain in left leg Pain does not radiate. Neuro: Level of Consciousness is awake, alert, obeys commands, Oriented to person, place, time, situation, Appropriate for age. Cardiovascular: No deficits noted. Respiratory: No deficits noted. GI: No deficits noted. 23:00 Reassessment: No changes from previously documented assessment. Patient and/or family vc1 updated on plan of care and expected duration. Pain level reassessed. 23:44 Reassessment: Failed attempt to draw blood x 2 ,labs called to draw blood. ke1 12/05 00:08 Reassessment: No changes from previously documented assessment. Patient and/or family vc1 updated on plan of care and expected duration. Pain level reassessed. Patient is alert, oriented x 3, equal unlabored respirations, skin warm/dry/pink. Patient states symptoms have not improved. Neuro: Level of Consciousness is awake, alert, obeys commands, Oriented to person, place, time, situation, Appropriate for age. 02:00 Reassessment: Wrapped pt left knee using 4X4s , abdominal pad, and mychal wrap. vc1 02:16 Reassessment: The pt was moved to room #20 at this time. She is requesting pain mayo medication, again, so I'll give what is ordered. 03:51 Reassessment: Given my familiarity with [employer], some of the charting will be here, mayo other, will be on [employer]. The pt is resting and in NAD. 04:32 Reassessment: Pt is sleeping with clear, even breaths. mayo 05:21 Reassessment: The pt is resting, but c/o nausea and was medicated with Zofran, per her mayo request and MD's order. She denies pain and reports she feels "better, but sleepy". The pt is in NAD. Vital Signs: 12/04 20:48 Weight 105.23 kg; Height 5 ft. 7 in. (170.18 cm); Pain 10/10; ke1 20:48 BP 127 / 58; Pulse 59; Resp 18; Temp 97.8(O); Pulse Ox 97% ; ke1 22:13 BP 123 / 56; Pulse 68; Resp 18; Pulse Ox 95% on R/A; ke1 23:30 BP 101 / 50; Pulse 64; Resp 18; Pulse Ox 100% on R/A; vc1 12/05 00:44 BP 110 / 53; Pulse 57; Resp 16; Pulse Ox 96% on R/A; vc1 00:46 Pain 4/10; vc1 12/04 20:48 Body Mass Index 36.34 (105.23 kg, 170.18 cm) ke1 ED Course: 12/04 20:47 Patient arrived in ED. la1 20:48 Ramos Denise RN is Primary Nurse. ke1 20:48 Arm band placed on right wrist. ke1 20:48 Bed in low position. Call light in reach. ke1 20:48 Maintain EMS IV. Dressing intact. Gauge \\T\\ site: 20 g l forearm. ke1 20:50 Carrington Benjamin PA is PHCP. jr8 20:50 Jt Morton MD is Attending Physician. jr8 21:12 Triage completed. ke1 23:30 Kleber Person MD is Hospitalizing Provider. jr8 12/05 00:42 No provider procedures requiring assistance completed. Patient admitted, IV remains in vc1 place. 09:31 Primary Nurse role handed off by Ramos Denise RN eb Administered Medications: 12/04 21:44 Drug: fentaNYL (PF) 100 mcg Route: IVP; Site: left forearm; ke1 22:02 Follow up: Response: Marked relief of symptoms ke1 23:01 Drug: fentaNYL (PF) 75 mcg Route: IVP; Site: left forearm; vc1 Outcome: 23:32 Decision to Hospitalize by Provider. jr8 12/05 00:42 Admitted to ER Hold. Please see [facility] for further documentation. vc1 Condition: good Instructed on the need for admit. 10:28 Discharged to home with family. padilla 10:28 Condition: good 10:28 Discharge instructions given to patient. 10:28 Patient left the ED. padilla Signatures: Carrington Benjamin PA PA jr8 Prieto Peres, TRAVEL OCCUPATIONAL THERAPIST-C TRAVEL OCCUPATIONAL THERAPIST-Cla1 Inez Bush Brenda, RN RN bo Au-Stager, Heather, RN RN ha Calcote, Vanessa, RN RN vc1 Ramos Denise, RN RN ke1 Corrections: (The following items were deleted from the chart) 12/04 22:02 22:00 General: Appears keYaritza ke1 12/05 00:42 00:40 BP 101 / 50; Pulse 64bpm; Resp 18bpm; Pulse Ox 100% RA; vc1 vc1
--- NOTE | 2021-12-05 00:57 | P.HP ---
Certification for Inpatient Patient admitted to: Observation With expected LOS: <2 Midnights Patient will require the following post-hospital care: None Practitioner: I am a practitioner with admitting privileges, knowledge of patient current condition, hospital course, and medical plan of care. Services: Services provided to patient in accordance with Admission requirements found in Title 42 Section 412.3 of the Code of Federal Regulations Patient History Date of Service: 12/05/21 Reason for admission: Intractable knee pain History of Present Illness: 56-year-old female with history of hypertension presents emergency department for severe left knee pain. Patient was seen by her orthopedic physician today and had a arthroscopic procedure to the left knee. Patient was having severe pain after procedure with complete she was given p.o. hydromorphone and ibuprofen to take at home, her pain was not relieved and was deemed to be quite severe that reason she was brought to the emergency department for further evaluation. Patient was evaluated in the emergency department she was given multiple rounds of IV pain medicationfentanyl with some relief although still having significant mount of pain. ED provider discussed case with patient's orthopedic physician Dr. Ramirez who is requesting the patient be admitted to the hospital service for pain control and reportedly stated to ED physician that he would see patient in the hospital morning. Will admit for pain management, ultrasound pending. Allergies Pain Medication Makes very sick N Allergy (Uncoded 07/11/18 21:05) Unknown Home Medications: Famotidine [Pepcid*] 20 mg PO BEDTIME 07/11/18 Tizanidine [Zanaflex*] 2 mg PO BEDTIME PRN 07/11/18 clonazePAM [Klonopin*] 0.25 mg PO BEDTIME PRN 07/11/18 Amlodipine [Norvasc*] 5 mg PO DAILY #30 tab 07/12/18 - Past Medical/Surgical History Diabetic: No -: Hiatal Hernia -: Diverticulosis -: Chronic Back pain -: Arthritis -: HTN -: Partial Hysterectomy -: Tonsillectomy Psychosocial/ Personal History: Lives at home with family - Family History Mother -: Heart disease, Other (see notes) Notes: DC Father -: Heart disease, Cancer, Other (see notes) Notes: Lung Cancer - Social History Smoking Status: Never smoker Alcohol use: No CD- Drugs: No Caffeine use: Yes Place of Residence: Home Review of Systems 10-point ROS is otherwise unremarkable Integumentary: As per HPI Physical Examination - Physical Exam General: Alert, In no apparent distress, Oriented x3 HEENT: Atraumatic, PERRLA, Mucous membr. moist/pink, EOMI, Sclerae nonicteric Neck: Supple, 2+ carotid pulse no bruit, No LAD, Without JVD or thyroid abnormality Respiratory: Clear to auscultation bilaterally, Normal air movement Cardiovascular: Regular rate/rhythm, Normal S1 S2 Gastrointestinal: Normal bowel sounds, No tenderness Musculoskeletal: No tenderness Integumentary: No rashes Neurological: Normal speech, Normal strength at 5/5 x4 extr, Normal tone, Normal affect Assessment and Plan - Plan Assessment: Intractable left knee pain status post arthroscopic procedure 06/05/2022 Hypertension Plan: Intractable left knee pain status post arthroscopic procedure 06/05/2022: as needed Toradol, hydromorphone, intermittent ice applied to left knee. ED provider reports Dr. Ramirez in agreement to see patient in the morning. Ultrasound pending to rule out DVT. Hypertension: Obtain and continue home medication DVT PPX:Lovenox Code status: Full Discharge Plan: Home Plan to discharge in: 24 Hours - Advance Directives Does patient have a Living Will: No Does patient have a Durable POA for Healthcare: No - Code Status/Comfort Care Code Status Assessed: Yes (Full code) Critical Care: No Time Spent Managing Pts Care (In Minutes): 55
[2021-12-05] MEDS ORDERED: ONDANSETRON 4 MG/2 ML VIAL IV PRN (02:28)
[2021-12-05] MEDS ORDERED: KETOROLAC 30 MG/ML INJ IV PRN (02:28)
[2021-12-05] MEDS ORDERED: HYDROMORPHONE HCL 1 MG/ML INJ IV PRN (02:28)
[2021-12-05] MEDS ORDERED: PROMETHAZINE INJ 25 MG/ML AMP IV PRN (02:28)
[2021-12-05] MEDS ORDERED: KETOROLAC 30 MG/ML INJ ONE (02:40)
[2021-12-05 03:24] VITALS: TEMP 97.5
[2021-12-05 03:38] VITALS: BMI 36.3
[2021-12-05 05:01] LABS: Absolute Lymphocytes (CBC) 2.4 K/uL (0.7-4.9); Hematocrit 36.2 % (36.0-45.0); Lymphocytes % 21.7 % (15.3-44.8); MPV 8.4 fL (7.6-11.3); RBC Red Blood Cell Count 4.17 M/uL (3.86-4.86)
[2021-12-05] MEDS ORDERED: ONDANSETRON 4 MG/2 ML VIAL ONE (05:04)
[2021-12-05 05:08] VITALS: BP 113/56
[2021-12-05 05:17] LABS: Potassium 3.6 mmol/L (3.5-5.1)
[2021-12-05] MEDS ORDERED: ENOXAPARIN 40 MG/0.4 ML SQ SCH (09:00)
--- NOTE | 2021-12-05 09:15 | P.DS ---
Admission Date: 12/05/21 Discharge Date: 12/05/21 Disposition: ROUTINE DISCHARGE Discharge Condition: FAIR Reason for Admission: Intractable knee pain Brief History of Present Illness: History of Present Illness: 56-year-old female with history of hypertension presents emergency department for severe left knee pain. Patient was seen by her orthopedic physician today and had a arthroscopic procedure to the left knee. Patient was having severe pain after procedure with complete she was given p.o. hydromorphone and ibuprofen to take at home, her pain was not relieved and was deemed to be quite severe that reason she was brought to the emergency department for further evaluation. Patient was evaluated in the emergency department she was given multiple rounds of IV pain medicationfentanyl with some relief although still having significant mount of pain. ED provider discussed case with patient's orthopedic physician Dr. Ramirez who is requesting the patient be admitted to the hospital service for pain control and reportedly stated to ED physician that he would see patient in the hospital morning. Will admit for pain management, Hospital Course: patient admitted for intractable pain control. She was evaluated by Dr. Ramirez but felt not to have any orthopedic complications. Her pain significantly improved after admission. DVT ultrasound was negative. Patient will be discharged home to continue previous regimen of pain control and activity and follow-up with Dr. Ramirez in clinic Vital Signs/Physical Exam: Temp Pulse Resp BP Pulse Ox 97.5 F 54 16 113/56 L 99 12/05/21 05:07 12/05/21 05:07 12/05/21 05:07 12/05/21 05:07 12/05/21 05:07 General: Alert, In no apparent distress, Oriented x3 HEENT: Atraumatic, Normocephalic, PERRLA Neck: Supple, 2+ carotid pulse no bruit, JVD not distended Respiratory: Clear to auscultation bilaterally, Normal air movement Cardiovascular: No edema, Normal pulses, Regular rate/rhythm, Normal S1 S2 Gastrointestinal: Normal bowel sounds, Soft and benign, Non-distended Laboratory Data at Discharge: WBC 11.2 K/uL (4.3-10.9) H 12/05/21 04:50 Hgb 11.8 g/dL (12.0-15.0) L 12/05/21 04:50 Hct 36.2 % (36.0-45.0) 12/05/21 04:50 Plt Count 250 K/uL (152-406) 12/05/21 04:50 Sodium 141 mmol/L (136-145) 12/05/21 04:50 Potassium 3.6 mmol/L (3.5-5.1) 12/05/21 04:50 BUN 20 mg/dL (7-18) H 12/05/21 04:50 Creatinine 0.90 mg/dL (0.55-1.3) 12/05/21 04:50 Glucose 126 mg/dL (74-106) H 12/05/21 04:50 Home Medications: Famotidine [Pepcid*] 20 mg PO BEDTIME 07/11/18 Tizanidine [Zanaflex*] 2 mg PO BEDTIME PRN 07/11/18 clonazePAM [Klonopin*] 0.25 mg PO BEDTIME PRN 07/11/18 Amlodipine [Norvasc*] 5 mg PO DAILY #30 tab 07/12/18 Diet: ADA Followup: Unknown,U [Primary Care Provider] - Physician Review: Patient Assessed, Agree with Above Assessment and Plan Time spent managing pt's care (in minutes): 35
[2021-12-05 10:37] VITALS: O2SAT 96
--- NOTE | 2021-12-05 13:56 | RAD REPORT ---
EXAM DESCRIPTION: Extremity Venous Uni Ltd CLINICAL HISTORY: 56 years Female, left lower cavity pain TECHNIQUE: Sagittal and axial crum scale and color Doppler images, including compression images, obt ained of the left common femoral, femoral, popliteal, posterior tibial veins. Doppler wave forms fr om the segments also recorded. Doppler and color Doppler interrogation performed of the saphenofemo ral junction. COMPARISON: None. FINDINGS: Color Doppler and crum scale imaging of the left lower extremity deep venous structures de monstrate no evidence of intraluminal thrombus. Normal compressibility of all deep venous segments. Normal phasic Doppler wave forms, which demonstrate normal augmentation response and normal direct ional flow. Calf veins: Venous flow demonstrated in the imaged segments. IMPRESSION: 1. Negative for left lower extremity deep venous thrombosis. Electronically signed by: Joby Falcon MD 12/05/2021 1:42 AM CDT Due to temporary technical issues with the PACS/Fluency reporting system, reports are being signed by the in house radiologist without review as a courtesy to ensure prompt reporting. The interpreting r adiologist is fully responsible for the content of the report.
== END 2021-12-05 10:09 | disposition home or self-care (01) ==
LOC: ER 20:38 → ERHOLD 12-05 00:20
PROVIDERS: ADMIT Internal Medicine; ATTEND Internal Medicine
DX: M25.562 Pain in left knee (principal); I10 Essential (primary) hypertension; M19.90 Unspecified osteoarthritis, unspecified site; M54.9 Dorsalgia, unspecified; G89.29 Other chronic pain; K44.9 Diaphragmatic hernia without obstruction or gangrene; K57.90 Diverticulosis of intestine, part unspecified, without perforation or abscess without bleeding; Z98.890 Other specified postprocedural states; Z82.49 Family history of ischemic heart disease and other diseases of the circulatory system; Z80.1 Family history of malignant neoplasm of trachea, bronchus and lung
CPT/HCPCS: 85025; 80048; 36415; 93971; 96374; 99285; J3010 ×2; J2405; G0378 ×2

== ENCOUNTER 2024-12-11 20:35 | Emergency (ER) | payer BC, OTHER ==
--- OUTSIDE RECORDS SUMMARY | 2024-12-11 20:44 | XMS REPORT | Continuity of Care Document ---
Author Name Unknown Address [address] [facility] [place] [address] [facility] Address [address] [facility] [address] [place] [address] Care Team Providers Care Resident Hall Director Name Role Phone Vaibhav Soto Jr. Primary Care Physician + [phone] Gee Fuchs Attending Clinician Unavailable Eve Ridley Attending Clinician [phone] Katherine Magana RN Attending Clinician Unavailable EVE WARD Attending Clinician Unavailabl e Unknown, Attending Attending Clinician Unavailab le Doctor Unassigned, [place] Attending Clinician U gabriela MCQUEEN_Mark_Deonte_ Attending Clinician Unavail able DR STEPHAN CASTRO Attending Clinician U Sailaja Garcia RN Attending Clinician Unavailab Yelitza David DO Attending Clinician [phone] YELITZA CORTEZ Attending Clinician Unavailable Vaccine, Ang Db Cbc Fam Attending Clinician Unav Dionisio Fiore MD Attending Clinician [phone] DIONISIO CISNEROS Attending Clinician Unavailable Nicole Koch MD Attending Clinician [phone] Claire Joy Attending Clinician [phone] Provider, [facility] Attending Clinician Un available CLAIRE FELIX Attending Clinician Unavailable Lab, Adc Fam Pob I Attending Clinician UnavailReyna Dave Attending Clinician REYNA CASTANEDA Attending Clinician Unavailable Gee Fuchs Admitting Clinician Unavailable CHARISSE_Mark_Deonte_ Admitting Clinician Unavail DR STEPHAN Gant Admitting Clinician U navailable Payers Payer Name Policy Type Policy Number Effective Date Expirati on Date Source [place] [id number] 2021 00:00:00 [id number] 1960 00:00:00 [facility] 6 [id number] [facility] Problems Condition Name Condition Details Condition Category Status Onset Date Resolution Date Last Treatment Date Treating Clinician Comments Source No known active problems No known active problems Disease [facility] [id number] Primary osteoarthr itis of left knee Problem Active [facility] Allergies, Adverse Reactions, Alerts Allergy Name Allergy Type Status Severity Reaction(s) Onset Date Inactive Date Treating Clinician Comments Source No Known Contrast Allergie s DA Active U 03-08 00:00: 00 [facility] No Known Drug Allergie s DA Active U 03-08 00:00: 00 [facility] No Known Food Allergie s DA Active U 03-08 00:00: 00 [facility] No Known Other Allergie s DA Active U 03-08 00:00: 00 [facility] No Known Drug Intolera nces DA Active U 03-07 00:00: 00 [facility] NO KNOWN ALLERGIE S Drug Class Active [facility] Social History Social Habit Start Date Stop Date Quantity Comments Source Sex Assigned At [facility] History of Tobacco Use [facility] Exposure to SARS-CoV-2 (event) 2022-06-13 00:00:00 2022-06-23 12:15:00 Not sure [facility] Alcohol intake 2022-06-23 00:00:00 2022-06-23 00:00:00 Ex-drinker (finding) [facility] Tobacco use and exposure 2020-06-16 00:00:00 2020-06-16 00:00:00 Smokeless tobacco non-user [facility] Smoking Status Start Date Stop Date Source Unknown if [facility] Medications Ordered Medication Name Filled Medication Name Start Date Stop Date Current Medication? Ordering Clinician Indication Dosage Frequency Signature (SIG) Comments Components Source fluticasone propionate 50 mcg/actuati on nasal spray 2021-08 00:00: 00 Yes [id number] 2{spray } Use 2 Sprays in each nostril in the morning. [facility] cetirizine (ZYRTEC) 10 mg tablet 2021-08 00:00: 00 Yes [id number] 10mg Take 1 tablet by mouth in the morning. [facility] traMADol HCl 50 MG traMADol HCl 50 MG 11-24 00:00: 00 No 1{table t_as_ne eded} traMADol HCl 50 MG Meloxicam 7.5 MG Meloxicam 7.5 MG 11-24 00:00: 00 12-24 00:00 :00 No 1{table t} QD Meloxicam 7.5 MG Bupivicaine [place] Bupivicaine [place] 09-25 00:00: 00 No [facility] Kenalog (Triamcinol one) Kenalog (Triamcinol one) 09-25 00:00: 00 No 40mg [facility] ondansetron (ZOFRAN-ODT ) disintegrat ing tablet 4 mg 2020-08 18:30: 00 08-04 17:30 :00 No 4mg 4 mg, Oral, ONCE, 1 dose, On 08/04/21 at 1230, Routine [facility] chlorphenir amine 4 mg tablet 2020-08 00:00: 00 Yes [id number] 4mg Take 1 tablet by mouth every 6 (six) hours as needed for Allergies or Runny nose. [facility] calcium/mag nesium/zinc (CALCIUM-MA GNESUIUM-ZI NC) 333-133-5 mg Tab 2020-08 00:00: 00 Yes [id number] 1{each} Take 1 Each by mouth daily. [facility] benzonatate 100 mg capsule 2020-08 00:00: 00 Yes [id number] 100mg Take 1 capsule by mouth 3 (three) times daily as needed for Cough. [facility] metoclopram pipo HCl 10 mg tablet 2020-08 00:00: 00 Yes [id number] 10mg Take 1 tablet by mouth every 6 (six) hours. [facility] vitamin D3-folic acid 125 mcg (5,000 unit)-1 mg Tab 2020-08 00:00: 00 09-04 05:59 :00 No [id number] 1{tbl} Take 1 tablet by mouth daily for 30 days. [facility] proMETHazin e 12.5 mg tablet 04-14 00:00: 00 Yes [id number] 12.5mg Take 1 tablet by mouth every 4 (four) hours as needed for Nausea and Vomiting (N/V). [facility] meclizine 25 mg tablet 2019-08 00:00: 00 06-24 05:59 :00 No [id number] 25mg Take 1 tablet by mouth 3 (three) times daily as needed for Dizziness for up to 7 days. [facility] ondansetron 4 mg tablet 2019-08 00:00: 00 06-20 05:59 :00 No [id number] 4mg Take 1 tablet by mouth every 8 (eight) hours as needed for Nausea and Vomiting (N/V) for up to 3 days. [facility] Tums Tums 04-14 00:00: 00 Yes Trevor Campa 1 tablet [facility] Advil Advil 04-14 00:00: 00 Yes Trevor Campa 1 tablet with food or milk as needed [facility] Tums 500 MG Tums 500 MG 04-14 00:00: 00 No 1{table t} QD Tums 500 MG Advil 200 MG Advil 200 MG 04-14 00:00: 00 No TID Advil 200 MG Bupivicaine [place] Bupivicaine [place] 04-14 00:00: 00 No 2mL [facility] Depo Medrol (40mg) Depo Medrol (40mg) 04-14 00:00: 00 No Common [facility] No known medications No Un amaris ity [facility] No known medications No Un amaris ity [facility] estradiol 0.05 mg/24 hr semiweekly transdermal patch APPLY 1 PATCH TOPICALLY TO THE SKIN 2 TIMES A WEEK estradiol 0.05 mg/24 hr semiweekly transdermal patch APPLY 1 PATCH TOPICALLY TO THE SKIN 2 TIMES A WEEK No estradiol 0.05 mg/24 hr semiweekly transderma l patch APPLY 1 PATCH TOPICALLY TO THE SKIN 2 TIMES A WEEK [facility] Mobic 7.5 mg tablet Take 1 tablet twice a day by oral route with meal(s) for 30 days. Mobic 7.5 mg tablet Take 1 tablet twice a day by oral route with meal(s) for 30 days. No 1 BID Mobic 7.5 mg tablet Take 1 tablet twice a day by oral route with meal(s) for 30 days. [facility] prednisone 10 mg tablet TAKE TABLETS 6,5,4,3,2,1 - LIKE A DOSEPACK prednisone 10 mg tablet TAKE TABLETS 6,5,4,3,2,1 - LIKE A DOSEPACK No prednisone 10 mg tablet TAKE TABLETS 6,5,4,3,2, 1 - LIKE A DOSEPACK [facility] Vagifem 10 mcg vaginal tablet INSERT ONE (1) TABLET VAGINAL TWO TIMES A WEEK AT BEDTIME. Vagifem 10 mcg vaginal tablet INSERT ONE (1) TABLET VAGINAL TWO TIMES A WEEK AT BEDTIME. No Vagifem 10 mcg vaginal tablet INSERT ONE (1) TABLET VAGINAL TWO TIMES A WEEK AT BEDTIME. [facility] Wegovy 1.7 mg/0.75 mL subcutaneou s pen injector INJECT 1.7 MG SUBCUTANEOU SLY WEEKLY. Wegovy 1.7 mg/0.75 mL subcutaneou s pen injector INJECT 1.7 MG SUBCUTANEOU SLY WEEKLY. No Wegovy 1.7 mg/0.75 mL subcutaneo us pen injector INJECT 1.7 MG SUBCUTANEO USLY WEEKLY. [facility] Tylenol Tylenol No Tylenol Vital Signs Vital Name Observation Time Observation Value Comments S bonita Systolic blood pressure 2022-06-23 18:29:00 110 mm[Hg] [facility] Diastolic blood pressure 2022-06-23 18:29:00 76 mm[Hg] [facility] Heart rate 2022-06-23 18:29:00 73 /min [facility] Body temperature 2022-06-23 18:29:00 37.17 [facility] Respiratory rate 2022-06-23 18:29:00 20 /min [facility] Body height 2022-06-23 18:29:00 167.6 cm [facility] Body weight 2022-06-23 18:29:00 108.5 kg [facility] BMI 2022-06-23 18:29:00 38.61 kg/m2 [facility] Oxygen saturation in Arterial blood by Pulse oximetry 2022-06-23 18:29:00 98 /min [facility] height 2021-11-24 15:30:00 66 [in_i] Commo n [facility] weight 2021-11-24 15:30:00 240 [lb_av] Comm on [facility] temperature 2021-11-24 15:30:00 98.0 [degF] Com mon [facility] bmi 2021-11-24 15:30:00 38.73 kg/m2 Comm on [facility] blood pressure systolic 2021-11-24 15:30:00 130 mm[Hg] [facility] blood pressure diastolic 2021-11-24 15:30:00 80 mm[Hg] Common [facility] height 2021-09-25 08:30:00 66 [in_i] Commo n [facility] weight 2021-09-25 08:30:00 240 [lb_av] Comm on [facility] temperature 2021-09-25 08:30:00 98.0 [degF] Com mon [facility] bmi 2021-09-25 08:30:00 38.73 kg/m2 Comm on [facility] blood pressure systolic 2021-09-25 08:30:00 112 mm[Hg] [facility] blood pressure diastolic 2021-09-25 08:30:00 80 mm[Hg] [facility] Systolic blood pressure 2021-08-04 16:55:00 164 mm[Hg] [facility] Diastolic blood pressure 2021-08-04 16:55:00 86 mm[Hg] [facility] Heart rate 2021-08-04 16:55:00 61 /min [facility] Body temperature 2021-08-04 16:55:00 36.78 [facility] Respiratory rate 2021-08-04 16:55:00 20 /min [facility] Body weight 2021-08-04 16:55:00 108.863 kg [facility] BMI 2021-08-04 16:55:00 38.74 kg/m2 [facility] Oxygen saturation in Arterial blood by Pulse oximetry 2021-08-04 16:55:00 99 /min [facility] Systolic blood pressure 2021-04-14 21:09:00 130 mm[Hg] [facility] Diastolic blood pressure 2021-04-14 21:09:00 83 mm[Hg] [facility] Heart rate 2021-04-14 21:09:00 60 /min [facility] Body temperature 2021-04-14 21:09:00 36.89 L[facility] Respiratory rate 2021-04-14 21:09:00 18 /min [facility] Body weight 2021-04-14 21:09:00 106.142 kg [facility] BMI 2021-04-14 21:09:00 37.77 kg/m2 [facility] Oxygen saturation in Arterial blood by Pulse oximetry 2021-04-14 21:09:00 96 /min [facility] Systolic blood pressure 2020-06-16 22:37:00 110 mm[Hg] [facility] Diastolic blood pressure 2020-06-16 22:37:00 74 mm[Hg] [facility] Heart rate 2020-06-16 22:37:00 54 /min [facility] Body temperature 2020-06-16 22:37:00 36.72 [facility] Respiratory rate 2020-06-16 22:37:00 18 /min [facility] Body height 2020-06-16 22:37:00 167.6 cm [facility] Body weight 2020-06-16 22:37:00 97.07 kg [facility] BMI 2020-06-16 22:37:00 34.54 kg/m2 [facility] Oxygen saturation in Arterial blood by Pulse oximetry 2020-06-16 22:37:00 98 /min [facility] Procedures Procedure Date / Time Performed Performing Clinician Source RADEX LAURENCE CRV COMPL W/OBLQ&FLEXION&/XTN 2024-04-19 00:00:00 [facility] Medicine MRI CERVICAL SPINE W/O CONTRAST 2024-04-19 00:00:00 [facility] Medicine POCT MOLECULAR FLU 2022-06-23 18:32:00 Unknown, Attend ing [facility] ASSIGNMENT OF BENEFITS 2022-06-23 18:16:46 Docto r Unassigned, [place] [facility] REFERRAL- REQUEST/RESPONSE 2021-09-15 06:01:00 Doctor Unassigned, [place] [facility] RAPID INFLUENZA A/B 2021-08-04 17:31:00 Bright Cort[place] [facility] CONSENT/REFUSAL FOR DIAGNOSIS AND TREATMENT 2021-08-04 16:48:41 Doctor Unassigned, [place] [facility] SARS-COV-2 COVID-19 VACCINE BOOSTER,0.25ML,IM (MODERNA) 2021-07-30 15:19:30 Doctor Unassigned, [place] [facility] PATIENT FINANCIAL POLICY 2021-04-14 21:03:08 Doctor Unassigned, [place] [facility] NOTICE OF PRIVACY PRACTICES 2021-04-14 21:02:54 Doctor Unassigned, [place] [facility] CONSENT/REFUSAL FOR DIAGNOSIS AND TREATMENT 2021-04-14 21:02:42 Doctor Unassigned, [place] [facility] ASSIGNMENT OF BENEFITS 2021-04-14 21:02:27 Docto r Unassigned, [place] [facility] Hysterectomy [facility] K[facility] Encounters Start Date/Time End Date/Time Encounter Type Admission Type Attending [facility] Care Facility Care Department Encounter ID Source 2021-11-05 11:24:01 Outpatient [facility] [id number] [facility] 2021-09-25 08:30:01 Outpatient [facility] [id number] [facility] 2021-09-11 13:20:01 Outpatient [facility] [id number] [facility] 2024-04-22 11:10:00 2024-04-22 11:10:00 Outpatient Gee Connolly [facility]AT[facility] RADI [id number] [facility] [place] [facility] 2024-04-19 00:00:00 2024-04-19 00:00:00 Gee Fuchs, PA: [address] [place] [address] , Ph. [id number] [facility] [id number] [facility] 2022-07-27 00:00:00 2022-07-27 00:00:00 Refill Eve Ward [facility] SER[facility] WHITE[facility] [id number] 350.1.13.10 4.2.7.2.686 [id number] [facility] 2022-06-24 00:00:00 2022-06-24 00:00:00 Letter (Out) Katherine Magana [facility] 1..840.114 350.1.13.10 4.2.7.2.686 [id number] [facility] 2022-06-23 12:20:00 2022-06-23 12:49:25 Outpatient R EVE WARD [facility] [id number] [facility] 2022-06-23 12:20:00 2022-06-23 12:49:25 Urgent Care Eve Ward Unknown, Attending COUNTS INCLUDE 234 BEDS AT THE [facility] CHRISTOPHER[facility] 1..840.114 350.1.13.10 4.2.7.2.686 [id number] [facility] 2022-06-23 00:00:00 2022-06-23 00:00:00 Orders Only Doctor Unassigned, [place] [facility] 1..840.114 350.1.13.10 4.2.7.2.686 [id number] [facility] 2022-01-30 11:39:00 2022-01-30 11:39:00 Outpatient FOG_Mark_Josseline Khan AO AO [id number] [facility] 2022-01-14 09:00:00 2022-01-14 09:00:00 Outpatient C STEPHAN CASTRO [facility] [id number] [facility] 2022-01-13 03:32:00 2022-01-13 03:32:00 Outpatient FOG_Inder Khan AO AO [id number] [facility] 2022-01-13 03:32:00 2022-01-13 03:32:00 Outpatient FOG_Inder Khan AOSM AO [id number] [facility] 2021-11-24 00:00:00 2021-11-24 00:00:00 OFFICE VISIT ESTAB PT LEVEL 4 [facility] [id number] [facility] 2021-09-25 00:00:00 2021-09-25 00:00:00 OFFICE VISIT NEW PT LEVEL 4 [facility] [id number] [facility] 2021-09-15 00:00:00 2021-09-15 00:00:00 Orders Only Doctor Unassigned, [place] [facility] [id number] 350.1.13.10 4.2.7.2.686 [id number] [facility] 2021-08-05 00:00:00 2021-08-05 00:00:00 Letter (Out) Sailaja Garcia [facility] 1.2840.114 350.1.13.10 4.2.7.2.686 [id number] [facility] 2021-08-04 10:57:00 2021-08-04 12:52:00 Emergency Yelitza Cortez [facility] [id number] 350.1.13.10 4.2.7.2.686 [id number] [facility] 2021-08-04 10:57:00 2021-08-04 12:52:00 Emergency X YELITZA CORTEZ [facility] ERT [id number] [facility] 2021-08-04 00:00:00 2021-08-04 00:00:00 Orders Only Doctor Unassigned, [place] [facility] 1.2840.114 350.1.13.10 4.2.7.2.686 [id number] [facility] 2021-07-30 09:00:00 2021-07-30 09:10:00 Imm/Inj Visit Vaccine, Ang Db Cbc Fam Cisneros, [facility] [id number] 350.1.13.10 4.2.7.2.686 [id number] [facility] 2021-07-30 09:00:00 2021-07-30 09:00:00 Outpatient Kalpana CISNEROS [facility] [id number] [facility] 2021-07-29 15:00:00 2021-07-29 15:00:00 Outpatient Kalpana CISNEROS [facility] [id number] [facility] 2021-04-15 00:00:00 2021-04-15 00:00:00 Letter (Out) Sailaja Garcia [facility] 1.114 350.1.13.10 4.2.7.2.686 [id number] [facility] 2021-04-14 16:03:42 2021-04-14 16:18:42 Urgent Care Nicole Koch [facility]?Zhang [facility] Building 1.114 350.1.13.10 4.2.7.2.686 [id number] [facility] 2021-04-14 16:00:00 2021-04-14 16:00:00 Outpatient Kalpana SYLVIA [facility] [id number] [facility] 2021-04-14 00:00:00 2021-04-14 00:00:00 Orders Only Doctor Unassigned, [place] [facility] 1.114 350.1.13.10 4.2.7.2.686 [id number] [facility] 2020-06-17 00:00:00 2020-06-17 00:00:00 Telephone Claire Felix [facility] Rita [facility] Office Building One 1.114 350.1.13.10 4.2.7.2.686 [id number] [facility] 2020-06-16 16:22:20 2020-06-16 16:42:20 Ur[facility] Care Provider[facility] 1.114 350.1.13.10 4.2.7.2.686 [id number] [facility] 2020-06-16 16:20:00 2020-06-16 16:20:00 Outpatient CLAIRE RYAN [facility] [id number] [facility] 2020-04-23 17:59:08 2020-04-23 18:19:08 Laboratory Only Lab, [facility] Fam Mariangel Castaneda Reyna [facility] Office Building One 1.114 350.1.13.10 4.2.7.2.686 [id number] [facility] 2020-04-23 17:59:08 2020-04-23 18:19:08 Laboratory Only Lab, [facility] Edinson [facility] Office Building One 1.114 350.1.13.10 4.2.7.2.686 [id number] 2020-04-23 18:00:00 2020-04-23 18:00:00 Outpatient REYNA KEATING [facility] [id number] [facility] 2020-04-23 00:00:00 2020-04-23 00:00:00 Letter (Out) Doctor Unassigned, [place] [facility] 1.114 350.1.13.10 4.2.7.2.686 [id number] [facility] 2018-04-14 15:30:00 2018-04-14 15:30:00 Outpatient [facility] [id number] [facility] Results Test Description Test Time Test Comments Results Result Co mments Source [facility]
[2024-12-11] MEDS ORDERED: LORazepam 2 MG/ML VIAL ONE (20:58)
[2024-12-11] MEDS ORDERED: ONDANSETRON 4 MG/2 ML VIAL ONE (20:58)
[2024-12-11 21:03] LABS: Absolute Basophils 0.1 K/uL (0-0.5); Absolute Eosinophils 0.3 K/uL (0-0.5); Absolute Lymphocytes (CBC) 2.6 K/uL (0.7-4.9); Absolute Monocytes 0.5 K/uL (0.1-1.3); Absolute Neutrophil 3.9 K/uL (1.8-8.0); Basophils % 0.9 % (0-1.3); Eosinophils % 4.2 % (0-4.4); Hematocrit 36.2 % (36.0-45.0); Hemoglobin 12.4 g/dL (12.0-15.0); Lymphocytes % 35.1 % (15.3-44.8); MCH 29.3 pg (27.0-35.0); MCHC 34.2 g/dL (32.0-36.0); MCV 85.6 fL (80-100); MPV 8.3 fL (7.6-11.3); Monocytes % 6.5 % (3.3-12.3); Neutrophils % 53.3 % (41.7-73.7); Platelets 259 thou/uL (152-406); RBC Red Blood Cell Count 4.23 M/uL (3.86-4.86); Red Cell Distribution Width 13.5 % (12.1-15.2)
[2024-12-11 21:13] LABS: PT Prothrombin Time 11.2 SECONDS (10-13.0); Protime INR 0.98
--- NOTE | 2024-12-11 21:16 | RAD REPORT ---
Procedure: Chest Single View HISTORY: Chest pain COMPARISON: 2018 FINDINGS: The lungs appear clear of acute infiltrate. No significant pleural effusion noted. The heart is normal size. IMPRESSION: No acute abnormality is displayed.
[2024-12-11 21:33] LABS: ALT/SGPT 18 U/L (13-56); AST/SGOT 13 U/L (15-37); Albumin/Globulin Ratio 1.1 (1.1-1.8); Alkaline Phosphatase 50 U/L (45-117); Anion Gap 8.5 mEq/L (5.0-15.0); BUN Blood Urea Nitrogen 16 mg/dL (7-18); Bicarbonate 25 mEq/L (21-32); Bilirubin Total 0.3 mg/dL (0.2-1.0); Globulin 2.7 g/dL (2.3-3.5); Glomerular Filtration Rate 101 ml/min (=/>90); Glucose Level 83 mg/dL (74-106); Magnesium 1.7 mg/dL (1.6-2.4); NT PRO-BNP 74 pg/mL (<125); Potassium 3.5 mEq/L (3.5-5.1); Protein, Total 5.7 g/dL (6.4-8.2); Sodium Level 143 mEq/L (136-145); Troponin High Sensitivity 6.7 pg/mL (<58.9)
[2024-12-11 21:37] LABS: Bilirubin Direct < 0.2 mg/dL (0-0.2); Bilirubin Indirect, Calculated 0.1 mg/dL (0.2-0.8)
--- NOTE | 2024-12-12 00:20 | EDPHYS ---
Physician Documentation [facility] Name: Ursula Wu Age: 59 yrs Sex: Female : 1965 Arrival Date: 12/11/2024 Time: 20:35 Bed 6 Private MD: ED Physician Vaughn Boles HPI: 12/12 00:18 This 59 yrs old Female presents to ER via EMS with complaints of Vertigo, sp4 Chest Pressure. 04:15 59-year-old female presents with acute onset of vertigo and chest pressure. Patient sp4 reports feeling very anxious.. Historical: - Allergies: 12/11 20:53 Pain Medication Makes very sick N/V; al5 - PMHx: 20:53 GERD; Anxiety; al5 - PSHx: 20:53 partial hysterectomy; al5 - Immunization history:: Adult Immunizations up to date. - Infectious Disease History:: Denies. - Social history:: Smoking status: Patient denies any tobacco usage or history of. - Family history:: not pertinent. ROS: 12/12 04:15 Constitutional: Negative for fever, chills, and weight loss, positive for vertigo and sp4 chest pressure, positive for anxiety All other systems are negative, Exam: 04:14 Constitutional: This is a well developed, well nourished patient who is awake, alert, sp4 and in no acute distress. Head/Face: Normocephalic, atraumatic. Eyes: Pupils equal round and reactive to light, extra-ocular motions intact. Lids and lashes normal. Conjunctiva and sclera are not injected. Cornea within normal limits. Periorbital areas with no swelling, redness, or edema. ENT: Nares patent. No nasal discharge, no septal abnormalities noted. Tympanic membranes are normal and external auditory canals are clear. Oropharynx with no redness, swelling, or masses, exudates, or evidence of obstruction, uvula midline. Mucous membranes moist. Neck: Trachea midline, no thyromegaly or masses palpated, and no cervical lymphadenopathy. Supple, full range of motion without nuchal rigidity, or vertebral point tenderness. Chest/axilla: Normal chest wall appearance and motion. Nontender with no deformity. No lesions are appreciated. Cardiovascular: Regular rate and rhythm with a normal S1 and S2. No gallops, murmurs, or rubs. Normal PMI, no JVD. No pulse deficits. Respiratory: Lungs have equal breath sounds bilaterally, clear to auscultation and percussion. No rales, rhonchi or wheezes noted. No increased work of breathing, no retractions or nasal flaring. Abdomen/GI: Soft, with normal bowel sounds. No distension or tympany. No guarding or rebound. No evidence of tenderness throughout. Back: No spinal tenderness. No costovertebral tenderness. Skin: Warm, dry with normal turgor. Normal color with no rashes, no lesions, and no evidence of cellulitis. MS/ Extremity: Pulses equal, no cyanosis. Neurovascular intact. Full, normal range of motion. Neuro: Awake and alert, GCS 15, oriented to person, place, time, and situation. Cranial nerves II-XII grossly intact. Motor strength 5/5 in all extremities. Sensory grossly intact. Psych: Awake, alert, with orientation to person, place and time. Behavior, mood, and affect are within normal limits 04:14 ECG was reviewed by the Attending Physician. EKG at 2108 sinus bradycardia rate 50, otherwise normal Vital Signs: 12/11 20:52 BP 122 / 64; Pulse 54; Resp 16; Temp 98.2; Pulse Ox 100% on R/A; Weight 72.57 kg; al5 Height 5 ft. 6 in. ; 21:15 BP 118 / 64; Pulse 51; Resp 15; Pulse Ox 99% ; al5 21:30 BP 120 / 65; Pulse 55; Resp 16; Pulse Ox 100% ; al5 22:00 BP 130 / 62; Pulse 52; Resp 18; Pulse Ox 100% ; al5 22:30 BP 107 / 54; Pulse 51; Resp 16; Pulse Ox 100% ; al5 23:18 BP 114 / 56; Pulse 57; Resp 18; Pulse Ox 100% ; cp4 12/12 00:00 BP 110 / 69; Pulse 53; Resp 18; Pulse Ox 99% ; al5 12/11 20:52 Body Mass Index 25.82 (72.57 kg, 167.64 cm) al5 NIH Stroke Scale Scores: 00:18 NIHSS Score: 0 sp4 [place] Coma Score: 04:14 Eye Response: spontaneous(4). Motor Response: obeys commands(6). Verbal Response: sp4 oriented(5). Total: 15. MDM: 12/11 20:52 Medical Screening Exam initiated sp4 12/12 04:15 Differential diagnosis: acute pericarditis, anxiety, chest wall pain, esophagitis, sp4 gastritis. HEART Score: History: Slightly Suspicious (0), ECG: Normal (0), Age: > 45 and < 65 years (1), Risk Factors: No Risk Factors Known (0), Troponin: < or = 1 x Normal Limit (0), Total Score = 1. Data reviewed: vital signs, nurses notes, EMS record, old medical records, lab test result(s), EKG, radiologic studies, plain films. 04:19 ED course: Procedure: Chest Single View HISTORY: Chest pain COMPARISON: 2018 FINDINGS: sp4 The lungs appear clear of acute infiltrate. No significant pleural effusion noted. The heart is normal size. IMPRESSION: No acute abnormality is displayed.. ED course: Workup today is unremarkable. Second troponin is negative. Patient stable for discharge home.. 12/11 20:52 Order name: Basic Metabolic Panel; Complete Time: 21:55 [facility] 12/11 20:52 Order name: CBC with Diff; Complete Time: 21:55 [facility] 12/11 20:52 Order name: LFT's; Complete Time: 21:55 [facility] 12/11 20:52 Order name: Magnesium; Complete Time: 21:55 [facility] 12/11 20:52 Order name: NT PRO-BNP; Complete Time: 21:55 [facility] 12/11 20:52 Order name: PT-INR; Complete Time: 21:55 [facility] 12/11 20:52 Order name: Troponin HS; Complete Time: 21:55 [facility] 12/11 20:52 Order name: TSH; Complete Time: 21:55 [facility] 12/11 20:52 Order name: T4 Free; Complete Time: 21:55 [facility] 12/11 22:07 Order name: Troponin High Sensitivity: at 23:00; Complete Time: 00:16 [facility] 12/11 20:52 Order name: XRAY Chest (1 view); Complete Time: 21:55 [facility] 12/11 20:52 Order name: Cardiac monitoring; Complete Time: 20:56 [facility] 12/11 20:52 Order name: EKG - Nurse/Tech; Complete Time: 21:06 [facility] 12/11 20:52 Order name: IV Saline Lock; Complete Time: 20:56 sp4 12/11 20:52 Order name: Labs collected and sent; Complete Time: 20:56 sp4 12/11 20:52 Order name: O2 Per Protocol; Complete Time: 20:56 sp4 12/11 20:52 Order name: O2 Sat Monitoring; Complete Time: 20:56 sp4 EC/05 21:08 Rate is 50 beats/min. Rhythm is regular, Sinus bradycardia. QRS [place] is Normal. [place] sp4 interval is normal. QRS interval is normal. QT interval is normal. No Q waves. T waves are Normal. No ST changes noted. Clinical impression: No evidence of ischemia. Interpreted by me. Reviewed by me. Administered Medications: 21:06 Drug: Ativan IVP 1 mg IVP once Route: IVP; Site: right antecubital; al5 12/12 00:44 Follow up: Response: No adverse reaction; Anxiety decreased al5 12/11 21:06 Drug: Ondansetron IVP 8 mg IVP once; over 2 minutes Route: IVP; Site: right antecubital;al5 12/12 00:43 Follow up: Response: No adverse reaction; Nausea is decreased al5 00:35 Drug: Promethazine PO 25 mg PO once Route: PO; al5 00:43 Follow up: Response: No adverse reaction; Medication administered at discharge. al5 00:35 Drug: Meclizine PO 25 mg PO once Route: PO; al5 00:43 Follow up: Response: No adverse reaction; Medication administered at discharge. al5 Disposition Summary: 12/12/24 00:19 Discharge Ordered Notes: Location: Home sp4 Problem: new sp4 Symptoms: have improved sp4 Condition: Stable sp4 Diagnosis - Acute peripheral positional vertigo, acute anxiety attack, noncardiac chest pain sp4 Followup: sp4 - With: Private Physician - When: 7 - 10 days - Reason: Recheck today's complaints Discharge Instructions: - Discharge Summary Sheet sp4 - Vertigo, [id number] sp4 Forms: - Patient Portal Instructions sp4 Prescriptions: - Meclizine 25 mg Oral tablet - take 1 tablet ORAL route every 8 hours As needed PRN vertigo; 30 tablet; sp4 Refills: 0, Product Selection Permitted - Valium 5 mg Oral tablet - take 1 tablet ORAL route every 8 hours As needed PRN anxiety; 20 tablet; sp4 Refills: 0, Product Selection Permitted - promethazine 25 mg Oral tablet - take 1 tablet ORAL route every 6 hours As needed PRN nausea; 30 tablet; sp4 Refills: 0, Product Selection Permitted NIH Stroke Scale - NIH Stroke Score Date: 12/12/2024 Time: 00:18 Total Score = 0 10. Dysarthria (speech clarity - read or repeat words) - 0(Normal) 11. Extinction and Inattention (visual/tactile/auditory/spatial/personal) - 0(No abnormality) 1a. Level of Consciousness (LOC) - 0(Alert) 1b. Level of Consciousness (LOC) (Month \T\ Age) - 0(Both) 1c. LOC Commands (Open \T\ Closes Eyes/Operations Coordinator) - 0(Both) 2. Best Gaze (Lateral Gaze Paresis) - 0(Normal) 3. Visual Field Loss - 0(No visual loss) 4. Facial Palsy - 0(Normal) 5a. Left Arm: Motor (10-second hold) - 0(No drift) 5b. Right Arm: Motor (10-second hold) - 0(No drift) 6a. Left Leg: Motor (5-second hold - always test supine) - 0(No drift) 6b. Right Leg: Motor (5-second hold - always test supine) - 0(No drift) 7. Limb Ataxia (finger/nose \T\ heel/nelson - test with eyes open) - 0(Absent) 8. Sensory Loss (pinprick arms/legs/face) - 0(Normal) 9. Best Language: Aphasia (description/naming/reading) - 0(No aphasia) Initials: sp4 Signatures: Dispatcher [employer] EDVaughn Daly MD MD sp4 Nicole Nolasco RN RN al5 Corrections: (The following items were deleted from the chart) 12/11 20:52 20:52 Chest Single View+RAD.RAD.BRZ ordered. EDMS EDMS 20:52 20:52 THYROID STIMULAT HORMONE+C.LAB.BRZ ordered. EDMS EDMS 20:52 20:52 T4 FREE+C.LAB.BRZ ordered. EDMS EDMS 20:53 20:53 PSHx: None; al5 al5
--- NOTE | 2024-12-12 00:20 | ER ---
Nurse's Notes [facility] Name: Ursula Wu Age: 59 yrs Sex: Female : 1965 Arrival Date: 12/11/2024 Time: 20:35 Bed 6 Private MD: Diagnosis: Acute peripheral positional vertigo, acute anxiety attack, noncardiac chest pain Presentation: 12/11 20:52 Chief complaint: EMS states: vertigo, nausea, and chest pressure x30-45 minutes. al5 Coronavirus screen: At this time, the client does not indicate any symptoms associated with coronavirus-19. Ebola Screen: No symptoms or risks identified at this time. Initial Sepsis Screen: Does the patient meet any 2 criteria? No. Patient's initial sepsis screen is negative. Does the patient have a suspected source of infection? No. Patient's initial sepsis screen is negative. Risk Assessment: Do you want to hurt yourself or someone else? Patient reports no desire to harm self or others. Onset of symptoms was December 11, 2024. 20:52 Method Of Arrival: EMS: [facility] al5 20:52 Acuity: GUS 2 al5 20:52 Care prior to arrival: Medication(s) given: Normal saline infusion, 100 mL IV al5 initiated. 18 GA, in the right antecubital area. Triage Assessment: 20:53 General: Appears in no apparent distress. comfortable, Behavior is calm, cooperative. al5 Pain: Complains of pain in neck. EENT: No signs and/or symptoms were reported regarding the EENT system. Neuro: Level of Consciousness is awake, alert, obeys commands, Oriented to person, place, time, situation. Cardiovascular: Reports chest pressure Capillary refill < 3 seconds Patient's skin is warm and dry. Respiratory: Airway is patent Respiratory effort is even, Respiratory pattern is regular, symmetrical. GI: No signs and/or symptoms were reported involving the gastrointestinal system. : No signs and/or symptoms were reported regarding the genitourinary system. Derm: Skin is intact, is healthy with good turgor, Skin is pink, warm \T\ dry. normal. Musculoskeletal: No signs and/or symptoms reported regarding the musculoskeletal system. Historical: - Allergies: 20:53 Pain Medication Makes very sick N/V; al5 - PMHx: 20:53 GERD; Anxiety; al5 - PSHx: 20:53 partial hysterectomy; al5 - Immunization history:: Adult Immunizations up to date. - Infectious Disease History:: Denies. - Social history:: Smoking status: Patient denies any tobacco usage or history of. - Family history:: not pertinent. Screenin:55 [facility] ED Fall Risk Assessment (Adult) History of falling in the last 3 months, al5 including since admission No falls in past 3 months (0 pts) Confusion or Disorientation No (0 pts) Intoxicated or Sedated No (0 pts) Impaired Gait No (0 pts) Mobility Assist Device Used No (0 pt) Altered Elimination No (0 pt) Score/Fall Risk Level 0 - 2 = Low Risk Oriented to surroundings, Maintained a safe environment, Hourly rounding (assess needs \T\ fall precautionary measures) done. Abuse screen: Denies threats or abuse. Denies injuries from another. Nutritional screening: No deficits noted. Tuberculosis screening: No symptoms or risk factors identified. Assessment: 20:55 Reassessment: see triage assessment. Pain: Pain does not radiate. Pain began 30 min ago.al5 21:49 Reassessment: Patient appears in no apparent distress at this time. Patient and/or al5 family updated on plan of care and expected duration. Pain level reassessed. Patient is alert, oriented x 3, equal unlabored respirations, skin warm/dry/pink. 22:58 Reassessment: Patient appears in no apparent distress at this time. No changes from al5 previously documented assessment. Patient and/or family updated on plan of care and expected duration. Pain level reassessed. Patient is alert, oriented x 3, equal unlabored respirations, skin warm/dry/pink. 12/12 00:00 Reassessment: Patient appears in no apparent distress at this time. Patient and/or al5 family updated on plan of care and expected duration. Pain level reassessed. Patient is alert, oriented x 3, equal unlabored respirations, skin warm/dry/pink. Patient states feeling better. Patient states symptoms have improved. Vital Signs: 12/11 20:52 BP 122 / 64; Pulse 54; Resp 16; Temp 98.2; Pulse Ox 100% on R/A; Weight 72.57 kg; al5 Height 5 ft. 6 in. ; 21:15 BP 118 / 64; Pulse 51; Resp 15; Pulse Ox 99% ; al5 21:30 BP 120 / 65; Pulse 55; Resp 16; Pulse Ox 100% ; al5 22:00 BP 130 / 62; Pulse 52; Resp 18; Pulse Ox 100% ; al5 22:30 BP 107 / 54; Pulse 51; Resp 16; Pulse Ox 100% ; al5 23:18 BP 114 / 56; Pulse 57; Resp 18; Pulse Ox 100% ; cp4 12/12 00:00 BP 110 / 69; Pulse 53; Resp 18; Pulse Ox 99% ; al5 12/11 20:52 Body Mass Index 25.82 (72.57 kg, 167.64 cm) al5 [place] Coma Score: 04:14 Eye Response: spontaneous(4). Motor Response: obeys commands(6). Verbal Response: sp4 oriented(5). Total: 15. NIH Stroke Scale Scores: 00:18 NIHSS Score: 0 sp4 ED Course: 12/11 20:51 Patient arrived in ED. al5 20:51 Vaughn Boles MD is Attending Physician. sp4 20:52 Nicole Nolasco RN is Primary Nurse. al5 20:53 Triage completed. al5 20:53 Arm band placed on right wrist. Patient placed in the treatment room, in view of staff al5 members, on interventional nurse, on pulse oximetry. EKG completed in triage. Results shown to MD. EKG completed in triage. Results shown to MD. 20:55 Patient has correct armband on for positive identification. Bed in low position. Call al5 light in reach. Side rails up X2. Provided Education on: plan of care. Client placed on continuous cardiac and pulse oximetry monitoring. NIBP monitoring applied. secured entrance monitor on. Pulse ox on. 20:55 No provider procedures requiring assistance completed. Maintain EMS IV. Dressing al5 intact. Good blood return noted. Site clean \T\ dry. Gauge \T\ site: 18 G RAC. Flushed with 10 mL NS. Patient maintains SpO2 saturation greater than 95% on room air. 21:12 XRAY Chest (1 view) In Process Unspecified. EDMS 12/12 00:41 IV discontinued, intact, bleeding controlled, No redness/swelling at site. Pressure al5 dressing applied. Administered Medications: 12/11 21:06 Drug: Ativan IVP 1 mg IVP once Route: IVP; Site: right antecubital; al5 12/12 00:44 Follow up: Response: No adverse reaction; Anxiety decreased al5 12/11 21:06 Drug: Ondansetron IVP 8 mg IVP once; over 2 minutes Route: IVP; Site: right antecubital;al5 12/12 00:43 Follow up: Response: No adverse reaction; Nausea is decreased al5 00:35 Drug: Promethazine PO 25 mg PO once Route: PO; al5 00:43 Follow up: Response: No adverse reaction; Medication administered at discharge. al5 00:35 Drug: Meclizine PO 25 mg PO once Route: PO; al5 00:43 Follow up: Response: No adverse reaction; Medication administered at discharge. al5 Medication: 12/11 20:55 VIS not applicable for this client. al5 Outcome: 12/12 00:19 Discharge ordered by . sp4 00:42 Discharged to home ambulatory, with significant other, al5 00:42 Condition: good 00:42 Discharge instructions given to patient, Instructed on discharge instructions, follow up and referral plans. medication usage, Demonstrated understanding of instructions, follow-up care, medications, Prescriptions given X 3, 00:43 Patient left the ED. al5 NIH Stroke Scale - NIH Stroke Score Date: 12/12/2024 Time: 00:18 Total Score = 0 10. Dysarthria (speech clarity - read or repeat words) - 0(Normal) 11. Extinction and Inattention (visual/tactile/auditory/spatial/personal) - 0(No abnormality) 1a. Level of Consciousness (LOC) - 0(Alert) 1b. Level of Consciousness (LOC) (Month \T\ Age) - 0(Both) 1c. LOC Commands (Open \T\ Closes Eyes/Brake Drum Lathe Operator) - 0(Both) 2. Best Gaze (Lateral Gaze Paresis) - 0(Normal) 3. Visual Field Loss - 0(No visual loss) 4. Facial Palsy - 0(Normal) 5a. Left Arm: Motor (10-second hold) - 0(No drift) 5b. Right Arm: Motor (10-second hold) - 0(No drift) 6a. Left Leg: Motor (5-second hold - always test supine) - 0(No drift) 6b. Right Leg: Motor (5-second hold - always test supine) - 0(No drift) 7. Limb Ataxia (finger/nose \T\ heel/nelson - test with eyes open) - 0(Absent) 8. Sensory Loss (pinprick arms/legs/face) - 0(Normal) 9. Best Language: Aphasia (description/naming/reading) - 0(No aphasia) Initials: sp4 Signatures: Dispatcher [employer] EDVaughn Daly MD MD sp4 Izabel Boo cp4 Nicole Nolasco RN RN al5 Corrections: (The following items were deleted from the chart) 12/11 20:53 20:53 PSHx: None; al5 al5
[2024-12-12] MEDS ORDERED: MECLIZINE HCL 12.5 MG TAB ONE (00:28)
[2024-12-12] MEDS ORDERED: PROMETHAZINE 25 MG TABLET ONE (00:28)
[2024-12-12 07:55] VITALS: TEMP 98.2
[2024-12-12 08:05] VITALS: BP 110/69; O2SAT 99
--- NOTE | 2024-12-14 11:52 | EKG ---
Test Date: 2024-12-11 Test Time: 21:08:52 Rotary Envelope Machine Operator: MARGARITA MEASUREMENT RESULTS: Intervals: Rate: 49 MT: 156 QRSD: 80 QT: 460 QTc: 415 [place]: P: 54 MT: 156 QRS: 35 T: 49 INTERPRETIVE STATEMENTS: Sinus bradycardia Low voltage QRS Septal infarct, age undetermined Abnormal ECG Compared to ECG 07/11/2018 12:02:36 Low QRS voltage now present Myocardial infarct finding now present Left ventricular hypertrophy no longer present Electronically Signed On 12-14-24 11:45:03 CDT by Cory Valdivia
== END 2024-12-12 00:43 | disposition home or self-care (01) ==
LOC: ER 20:35
DX: F41.0 Panic disorder [episodic paroxysmal anxiety] (principal); H81.10 Benign paroxysmal vertigo, unspecified ear; H81.399 Other peripheral vertigo, unspecified ear; K21.9 Gastro-esophageal reflux disease without esophagitis
CPT/HCPCS: 93005; 85025; 80048; 36415; 83735; 85610; 80076; 84443; 84484 ×2; 84439; 83880; 71045; 96375; 96374; 99285; Q0169; J8597; J2405